=== PATIENT | male | born 1985 | race Two or more races ===

== ENCOUNTER 2019-06-30 20:03 | Inpatient (IN) | payer SELFPAY ==
[~2019-06-30 20:03] MED LIST: ETOMIDATE INJ/PF 20 MG/10 ML SDV IV ONE; ROCURONIUM BROMIDE INJ 50 MG/5 ML VIAL IV ONE
[2019-06-30] MEDS ORDERED: FENTANYL CITRATE INJ/PF 100 MCG/2 ML AMPUL ONE (20:17)
--- NOTE | 2019-06-30 20:20 | ER Document Report ---
ED General - General Stated Complaint: ETOH ABUSE Time Seen by Provider: 06/30/19 20:17 Mode of Arrival: Medic Information source: Emergency Med Personnel Cannot obtain history due to: Intoxicated, Unstable vital signs, Altered mental status Notes: 34-year-old male presents via EMS from home unresponsive, agonal breathing and actively being ventilated by BVM. EMS reports that they get a call from the home of the patient and bystanders report that the patient drank 1/5 of tequila within 3 minutes as well as several beers. Patient was found laying on his side with vomit all over him. EMS reports O2 saturation of 77%. - HPI Onset: Just prior to arrival - Related Data Allergies/Adverse Reactions: No Known Allergies Allergy (Unverified 06/30/19 21:03) Past Medical History - General Information source: Emergency Med Personnel Cannot obtain history due to: Intoxicated, Intubated, Unstable vital signs, Altered mental status - Social History Smoking Status: Unknown if Ever Smoked Frequency of alcohol use: Heavy Family History: Reviewed & Not Pertinent Review of Systems - Review of Systems -: Yes ROS unobtainable due to patient's medical condition Physical Exam - Vital signs Vitals: Resp BP Pulse Ox 23 H 114/83 92 06/30/19 20:10 06/30/19 20:10 06/30/19 20:10 - Notes Notes: PHYSICAL EXAMINATION: GENERAL: Agonal respirations, active bagging, covered in emesis. HEAD: Atraumatic, normocephalic. EYES: Pupils equal round and reactive to light, extraocular movements intact, sclera anicteric, conjunctiva are normal. ENT: Nares patent, oropharynx clear without exudates. Moist mucous membranes. NECK: Normal range of motion, supple without lymphadenopathy LUNGS: Coarse breath sounds bilaterally with bagging. Agonal breathing HEART: Regular rate and rhythm without murmurs ABDOMEN: Soft, nontender, nondistended abdomen. No guarding, no rebound. No masses appreciated. Musculoskeletal: No pitting edema, cyanosis, obvious deformity NEUROLOGICAL: GCS 3 T PSYCH: Somnolent SKIN: Warm, Dry, normal turgor, no rashes or lesions noted. Course - Re-evaluation Re-evalutation: 06/30/19 21:17 Laboratory 06/30/19 06/30/19 06/30/19 20:07 20:07 20:07 WBC 11.7 H RBC 4.64 Hgb 15.0 Hct 43.9 MCV 95 MCH 32.4 MCHC 34.2 RDW 12.4 Plt Count 383 Total Counted 100 Seg Neutrophils % Not Reportable Seg Neuts % (Manual) 36 L Lymphocytes % Not Reportable Lymphocytes % (Manual) 50 H Atypical Lymphs % 9 Monocytes % Not Reportable Monocytes % (Manual) 4 Eosinophils % Not Reportable Eosinophils % (Manual) 0 Basophils % Not Reportable Basophils % (Manual) 1 Absolute Neutrophils Not Reportable Abs Neuts (Manual) 4.2 Absolute Lymphocytes Not Reportable Abs Lymphs (Manual) 6.9 H Absolute Monocytes Not Reportable Abs Monocytes (Manual) 0.5 Absolute Eosinophils Not Reportable Absolute Eos (Manual) 0.0 Absolute Basophils Not Reportable Abs Basophils (Manual) 0.1 Platelet Comment ADEQUATE Hypochromasia 1+ Sodium 148.0 H Potassium 4.3 Chloride 114 H Carbon Dioxide 20 L Anion Gap 14 BUN 11 Creatinine 0.61 Est GFR ( Amer) > 60 Est GFR (Non-Af Amer) > 60 Glucose 128 H POC Glucose Lactic Acid Calcium 8.2 L Total Bilirubin 0.3 Direct Bilirubin 0.3 Neonat Total Bilirubin Not Reportable Neonat Direct Bilirubin Not Reportable Neonat Indirect Bili Not Reportable AST 32 ALT 22 Alkaline Phosphatase 77 Troponin I < 0.012 Total Protein 7.4 Albumin 4.3 Salicylates < 1.0 L Acetaminophen < 10 L Serum Alcohol 753 H* 06/30/19 06/30/19 20:07 20:37 WBC RBC Hgb Hct MCV MCH MCHC RDW Plt Count Total Counted Seg Neutrophils % Seg Neuts % (Manual) Lymphocytes % Lymphocytes % (Manual) Atypical Lymphs % Monocytes % Monocytes % (Manual) Eosinophils % Eosinophils % (Manual) Basophils % Basophils % (Manual) Absolute Neutrophils Abs Neuts (Manual) Absolute Lymphocytes Abs Lymphs (Manual) Absolute Monocytes Abs Monocytes (Manual) Absolute Eosinophils Absolute Eos (Manual) Absolute Basophils Abs Basophils (Manual) Platelet Comment Hypochromasia Sodium Potassium Chloride Carbon Dioxide Anion Gap BUN Creatinine Est GFR ( Amer) Est GFR (Non-Af Amer) Glucose POC Glucose 104 Lactic Acid 1.7 Calcium Total Bilirubin Direct Bilirubin Neonat Total Bilirubin Neonat Direct Bilirubin Neonat Indirect Bili AST ALT Alkaline Phosphatase Troponin I Total Protein Albumin Salicylates Acetaminophen Serum Alcohol Temp Pulse Resp BP Pulse Ox 16 122/84 100 07/01/19 01:50 07/01/19 01:50 07/01/19 01:50 Chest X-Ray 06/30/19 20:18 IMPRESSION: Clear lungs. Endotracheal tube tip is located 2 cm above the meryl. Enteric drainage tube tip is located within the gastric body. copyright 2010 [employer]- All Rights Reserved Head CT 06/30/19 20:18 IMPRESSION: No acute intracranial abnormality. TECHNICAL DOCUMENTATION: Quality ID # [id number]: Final reports with documentation of one or more dose reduction techniques (e.g., Automated exposure control, adjustment of the mA and/or kV according to patient size, use of iterative reconstruction technique) copyright 2010 [employer]- All Rights Reserved Temp Pulse Resp BP Pulse Ox 16 122/84 100 07/01/19 01:50 07/01/19 01:50 07/01/19 01:50 34-year-old male presents via EMS from home unresponsive, agonal breathing and actively being ventilated by BVM. EMS reports that they get a call from the home of the patient and bystanders report that the patient drank 1/5 of tequila within 3 minutes as well as several beers. Patient was found laying on his side with vomit all over him. EMS reports O2 saturation of 77%. Upon arrival to the emergency department patient has agonal respirations and vomitus in his airway. He was suctioned and preoxygenated prior to intubation which was obtained with a glide scope. Because of the patient's concern for aspiration he did receive IV antibiotics. Patient did have episodes of hypotension prompting levophed administration. CBC shows mild leukocytosis,, no anemia. CMP is without significant electrolyte abnormality, alcohol level is 753. poison control contacted. 06/30/19 21:18 bare hugger placed for hypothermia. 06/30/19 21:26 I did speak to poison control who recommends supportive care, CIWA protocol, electrolyte replacement as needed. Family is at the bedside. Patient has been intubated. Suspect aspiration. Patient currently on a Versed drip for sedation and receiving fentanyl for pain. I did speak to the hospitalist Dr. Ludwig who has agreed to admit the patient to the ICU. 07/01/19 02:11 - Vital Signs Vital signs: Temp Pulse Resp BP Pulse Ox 16 122/84 100 07/01/19 01:50 07/01/19 01:50 07/01/19 01:50 - Laboratory Result Diagrams: 06/30/19 20:07 06/30/19 20:07 Laboratory results interpreted by me: 06/30/19 06/30/19 06/30/19 20:07 20:07 20:07 WBC 11.7 H Seg Neuts % (Manual) 36 L Lymphocytes % (Manual) 50 H Abs Lymphs (Manual) 6.9 H ABG pH ABG pO2 ABG HCO3 ABG Total CO2 ABG O2 Saturation Sodium 148.0 H Chloride 114 H Carbon Dioxide 20 L Glucose 128 H Calcium 8.2 L Phosphorus 5.0 H Salicylates < 1.0 L Acetaminophen < 10 L Serum Alcohol 753 H* 06/30/19 21:24 WBC Seg Neuts % (Manual) Lymphocytes % (Manual) Abs Lymphs (Manual) ABG pH 7.32 L ABG pO2 173.4 H ABG HCO3 19.1 L ABG Total CO2 20.2 L ABG O2 Saturation 99.1 H Sodium Chloride Carbon Dioxide Glucose Calcium Phosphorus Salicylates Acetaminophen Serum Alcohol - Diagnostic Test Radiology reviewed: Image reviewed, Reports reviewed - EKG Interpretation by Me EKG shows normal: Sinus rhythm Rate: Tachycardia Rhythm: NSR When compared to previous EKG there are: Previous EKG unavailable Procedures - Intubation Orotracheal Time of Intubation: 20:19 Airway evaluation: Copious secretions Mallampati Classification: Class 2 Medications: Etomidate, Pancuronium Intubation method: Orotracheal Blade type: Tess Blade size: 3 Equipment used: Glidescope ETT size: 7.5 ETT secured at: Teeth ETT secured at (cm): 24 Breath Sounds after Intubation: Right greater than left End tidal CO2 confirmed: Yes Intubation Complications: Vomited, Apparent aspiration Critical Care Note - Critical Care Note Total time excluding time spent on procedures (mins): 40 - Minutes of critical care time spent in direct contact evaluating and reevaluating the patient, treating symptoms, reviewing labs and studies and speaking with family and consultants excluding any procedures Discharge - Discharge Clinical Impression: Alcohol abuse Alcohol intoxication Qualifiers: Complication of substance-induced condition: with unspecified complication Qualified Code(s): F10.929 - Alcohol use, unspecified with intoxication, unspecified Respiratory failure Qualifiers: Chronicity: acute Respiratory failure complication: unspecified whether with hypoxia or hypercapnia Qualified Code(s): J96.00 - Acute respiratory failure, unspecified whether with hypoxia or hypercapnia Condition: Critical Disposition: ADMITTED INPATIENT Admitting Provider: Venkat (Hospitalist) Unit Admitted: ICU
[2019-06-30 20:25] LABS: HEMATOCRIT 43.9 % (37.9-51.0); MEAN CORPUSCULAR HEMOGLOBIN 32.4 pg (27.0-33.4); MEAN CORPUSCULAR HGB CONC 34.2 g/dL (32.0-36.0); MEAN CORPUSCULAR VOLUME 95 fl (80-97); PLATELET COUNT 383 10^3/uL (150-450); RED BLOOD COUNT 4.64 10^6/uL (4.35-5.55); RED CELL DISTRIBUTION WIDTH 12.4 % (11.5-14.0); WHITE BLOOD COUNT 11.7 10^3/uL (4.0-10.5)
--- NOTE | 2019-06-30 20:44 | RADIOLOGY REPORT (SQ) ---
EXAM DESCRIPTION: XR CHEST 1 VIEW COMPLETED DATE/TME: 06/30/2019 20:18 CLINICAL HISTORY: 34 years, Male, intubated COMPARISON: None. NUMBER OF VIEWS: One TECHNIQUE: Single frontal view of the chest was obtained LIMITATIONS: None. FINDINGS: Endotracheal tube tip is located in the trachea, approximately 2 cm above the meryl. Enteric drainage tube tip is located within the gastric body. Cardiac and mediastinal contours are normal. Lungs are clear. No pleural effusion or pneumothorax. IMPRESSION: Clear lungs. Endotracheal tube tip is located 2 cm above the meryl. Enteric drainage tube tip is located within the gastric body. copyright 2010 [employer]- All Rights Reserved
[2019-06-30] MEDS ORDERED: IMIPENEM/CILASTATIN SODIUM INJ 500 MG VIAL IV ONE (20:47)
[2019-06-30 20:49] LABS: ALBUMIN 4.3 g/dL (3.5-5.0); ALKALINE PHOSPHATASE 77 U/L (38-126); ANION GAP 14 (5-19); ASPARTATE AMINO TRANSFERASE 32 U/L (17-59); BILIRUBIN,DIRECT 0.3 mg/dL (0.0-0.4); BILIRUBIN,TOTAL 0.3 mg/dL (0.2-1.3); BLOOD UREA NITROGEN 11 mg/dL (7-20); CALCIUM 8.2 mg/dL (8.4-10.2); CARBON DIOXIDE 20 mmol/L (22-30); CHLORIDE 114 mmol/L (98-107); GLUCOSE 128 mg/dL (75-110); POTASSIUM 4.3 mmol/L (3.6-5.0); TOTAL PROTEIN 7.4 g/dL (6.3-8.2)
[2019-06-30 20:50] LABS: ACETAMINOPHEN < 10 ug/mL (10-30); SALICYLATE < 1.0 mg/dL (2.0-20.0)
[2019-06-30] MEDS ORDERED: MIDAZOLAM HCL 50 MG/100 ML RTUINJ ONE (20:57)
[2019-06-30] MEDS ORDERED: ONDANSETRON HCL INJ/PF 4 MG/2 ML SDV ONE (20:57)
[2019-06-30] MEDS ORDERED: NALOXONE HCL INJ/PF 0.4 MG/1 ML SDV ONE (20:58)
[2019-06-30] MEDS ORDERED: NALOXONE HCL INJ 2 MG/2 ML DISP.SYRIN ONE (20:59)
[2019-06-30 21:07] LABS: ABSOLUTE LYMPHOCYTES# (MANUAL) 6.9 10^3/uL (0.5-4.7); ABSOLUTE MONOCYTES # (MANUAL) 0.5 10^3/uL (0.1-1.4); BASOPHILS % (MANUAL) 1 % (0-2); EOSINOPHILS % (MANUAL) 0 % (0-6); LYMPHOCYTES % (MANUAL) 50 % (13-45); MONOCYTES % (MANUAL) 4 % (3-13); SEGMENTED NEUTROPHILS % (MAN) 36 % (42-78); TOTAL CELLS COUNTED 100
[2019-06-30 21:08] LABS: ALCOHOL 753 mg/dL (NONE DETECTED); HYPOCHROMASIA 1+; PLATELET COMMENT ADEQUATE
[2019-06-30] MEDS ORDERED: NORMAL SALINE 1000 ML 1,000 ML IV ONE ×2 (21:22→22:18)
[2019-06-30] MEDS ORDERED: THIAMINE HCL 100 MG, FOLIC ACID 1 MG in NORMAL SALINE 250 ML IV ONE (21:25)
[2019-06-30 21:30] LABS: APPEARANCE,URINE CLEAR; BILIRUBIN,URINE NEGATIVE (NEGATIVE); COLOR,URINE STRAW; GLUCOSE, URINE NEGATIVE (NEGATIVE); KETONES,URINE NEGATIVE (NEGATIVE); LEUKOCYTE ESTERASE,URINE NEGATIVE (NEGATIVE); NITRITE,URINE NEGATIVE (NEGATIVE); PROTEIN,URINE NEGATIVE (NEGATIVE); URINE SPECIFIC GRAVITY 1.005; UROBILINOGEN,URINE NEGATIVE mg/dL (<2.0)
[2019-06-30 21:38] LABS: ARTERIAL BLOOD BASE EXCESS -6.5 mmol/L; ARTERIAL BLOOD H2CO3 1.15 mmol/L (1.05-1.35); ARTERIAL BLOOD HCO3 19.1 mmol/L (20-24); ARTERIAL BLOOD O2 SATURATION 99.1 % (94-98); ARTERIAL BLOOD PCO2 38.3 mmHg (35-45); ARTERIAL BLOOD PH 7.32 (7.35-7.45); ARTERIAL BLOOD PO2 173.4 mmHg (80-100); ARTERIAL BLOOD TOTAL CO2 20.2 mmol/L (23-27)
[2019-06-30 21:39] LABS: ARTERIAL BLOOD FIO2 75%
[2019-06-30 21:46] LABS: URINE AMPHETAMINES SCREEN NEGATIVE; URINE BARBITURATES SCREEN NEGATIVE; URINE BENZODIAZEPINES SCREEN NEGATIVE; URINE COCAINE SCREEN NEGATIVE; URINE MARIJUANA (THC) SCREEN NEGATIVE; URINE METHADONE SCREEN NEGATIVE; URINE PHENCYCLIDINE SCREEN NEGATIVE
[2019-06-30] MEDS: FENTANYL CITRATE INJ/PF 100 MCG/2 ML AMPUL IV SCH ×2 (21:54→22:41)
[2019-06-30] MEDS ORDERED: ROCURONIUM BROMIDE INJ 50 MG/5 ML VIAL IV ONE (21:56)
[2019-06-30] MEDS ORDERED: NALOXONE HCL INJ/PF 0.4 MG/1 ML SDV IV ONE (21:56)
[2019-06-30] MEDS ORDERED: NALOXONE HCL INJ 2 MG/2 ML DISP.SYRIN IV ONE (21:56)
[2019-06-30] MEDS ORDERED: FENTANYL CITRATE INJ/PF 100 MCG/2 ML AMPUL IV ONE (21:56)
[2019-06-30] MEDS ORDERED: ONDANSETRON HCL INJ/PF 4 MG/2 ML SDV IV ONE (21:57)
[2019-06-30] MEDS ORDERED: MIDAZOLAM HCL 50 MG/100 ML RTUINJ IV PRN (21:59)
[2019-06-30] MEDS ORDERED: ETOMIDATE INJ/PF 20 MG/10 ML SDV IV ONE (22:07)
[2019-06-30] MEDS ORDERED: NOREPINEPHRINE BITARTRATE INJ/PF 4 MG/4 ML SDV IV ONE (22:30)
[2019-06-30] MEDS ORDERED: DEXTROSE 5%-WATER 250 ML with NOREPINEPHRINE BITARTRATE 4 MG IV PRN ×2 (22:40)
[2019-06-30] MEDS ORDERED: THIAMINE HCL INJ 200 MG/2 ML VIAL ONE (22:54)
[2019-06-30] MEDS ORDERED: FOLIC ACID INJ 5 MG/1 ML 10 ML VIAL ONE (22:55)
[2019-06-30] MEDS ORDERED: IPRATROPIUM/ALBUTEROL 0.5-2.5 MG/3 ML AMPUL NEB ONE (23:45)
[2019-06-30] MEDS ORDERED: FAMOTIDINE INJ/PF 20 MG/2 ML SDV IV ONE (23:45)
[2019-07-01] MEDS: FENTANYL CITRATE INJ/PF 100 MCG/2 ML AMPUL IV SCH ×2 (00:07→04:07)
[2019-07-01] MEDS: NORMAL SALINE 1000 ML 1,000 ML IV PRN ×3 (00:18→16:35)
--- NOTE | 2019-07-01 00:25 | RADIOLOGY REPORT (SQ) ---
EXAM DESCRIPTION: CT HEAD WITHOUT IV CONTRAST COMPLETED DATE/TME: 06/30/2019 20:18 CLINICAL HISTORY: 34 years, Male, ams COMPARISON: None. TECHNIQUE: Noncontrast CT of the head was performed. Coronal and sagittal reformations were created. Images stored on PACS. All CT scanners at this facility use dose modulation, iterative reconstruction, and/or weight based dosing when appropriate to reduce radiation dose to as low as reasonably achievable (ALARA). [facility]: Dose Right [facility]: CareDose [facility]: Dose Right [facility]: Teradose 4D [facility]: [employer] LIMITATIONS: None. FINDINGS: Brain parenchyma is normal in attenuation. No acute intracranial hemorrhage, mass effect, or extra-axial fluid is seen. The ventricles and sulcal spaces are normal in size and configuration. Globes and orbits show no acute abnormality. However, there is remote deformity involving the left lamina papyracea. Mild mucosal thickening is noted about both maxillary antra. Remaining paranasal sinuses and mastoid air cells are clear. There are no depressed skull fractures. A mild amount of fluid and debris is noted about the nasopharynx. IMPRESSION: No acute intracranial abnormality. TECHNICAL DOCUMENTATION: Quality ID # 436: Final reports with documentation of one or more dose reduction techniques (e.g., Automated exposure control, adjustment of the mA and/or kV according to patient size, use of iterative reconstruction technique) copyright 2011 [employer] [place]- All Rights Reserved
--- NOTE | 2019-07-01 02:24 | PDOC H&P ---
History of Present Illness Admission Date/PCP: 06/30/19 23:38 Patient complains of: Heavy drinking followed by vomiting and unresponsiveness History of Present Illness: AALIYAH LION is a 34 year old male with history of EtOH abuse who presented to the emergency room after drinking about the fifth of tequila and half an hour. Patient is known to drink heavily over the weekend. He vomited and was later noted to be in agonal breathing by EMS covered with vomitus. No other history could be obtained and there were no family members available. Upon presentation to the emergency room vital signs were normal as mentioned below. Labs revealed leukocytosis of 11.7With 50% lymphocytes and 36% neutrophils with 50% with 50% of sites and 36% neutrophils. ABG showed pH 7.32, bicarbonate 19.1, PCO2 173.4 and PCO2 38.3. CMP was remarkable for hyponatremia 148 and hyperchloremia 114. CO2 is 20 glucose 128 with calcium 8.2, phosphorus 5, magnesium 2.2 lactic acid 1.7 His alcohol level remarkably elevated at 753, Tylenol and salicylate less than 10 and urine drug screen came back negative. Head CT scan revealed no acute intracranial abnormalities and EKG revealed sinus tachycardia with a rate of 113. The patient was given IV Narcan in the emergency room as well as hydration with IV normal saline and then banana bag. The patient will be admitted to an ICU bed for further evaluation and management Past Medical History Past Medical History: #1 ongoing tobacco abuse Social History Smoking Status: Unknown if Ever Smoked Family History Parental Family History Reviewed: Yes Children Family History Reviewed: Yes Sibling(s) Family History Reviewed.: Yes Medication/Allergy Home Medications: No Home Medications 06/30/19 Allergies/Adverse Reactions: No Known Allergies Allergy (Unverified 06/30/19 21:03) Review of Systems Review of Systems: As per history of present illness is unobtainable as the patient is sedated on mechanical ventilation Physical Exam Vital Signs: Temp Pulse Resp BP Pulse Ox 16 112/70 99 07/01/19 01:00 07/01/19 01:00 07/01/19 01:00 Intake & Output 06/29/19 06/30/19 07/01/19 06:59 06:59 06:59 Intake Total 2016 Output Total 1600 Balance 416 Weight 54.4 kg Exam: Generally: Acutely ill young male who is sedated and intubated on mechanical ventilation Vital signs-as listed Head - atraumatic, normocephalic. Pupils - equal, round and reactive to light and accommodation. No scleral icterus. Oropharynx - moist mucous membranes and tongue. Nose: NG tube in place. Neck - supple. No JVD. Carotid pulses 2+ bilaterally. No carotid bruits. No palpable thyromegaly or lymphadenopathy. Cardiovascular - regular rate and rhythm. Normal S1 and S2. No murmurs, gallops or rubs. Lungs - clear to auscultation bilaterally. Abdomen - soft and nontender. Positive bowel sounds. No palpable organomegaly or masses. Extremities - no pitting edema, clubbing or cyanosis. Neuro - grossly non-focal. Skin - no rashes. and rectal exam - deferred. Results Laboratory Results: 06/30/19 20:07 06/30/19 20:07 06/30/19 06/30/19 06/30/19 20:07 20:07 20:07 WBC 11.7 H RBC 4.64 Hgb 15.0 Hct 43.9 MCV 95 MCH 32.4 MCHC 34.2 RDW 12.4 Plt Count 383 Seg Neutrophils % Not Reportable Lymphocytes % Not Reportable Monocytes % Not Reportable Eosinophils % Not Reportable Basophils % Not Reportable Absolute Neutrophils Not Reportable Absolute Lymphocytes Not Reportable Absolute Monocytes Not Reportable Absolute Eosinophils Not Reportable Absolute Basophils Not Reportable Carbonic Acid HCO3/H2CO3 Ratio ABG pH ABG pCO2 ABG pO2 ABG HCO3 ABG O2 Saturation ABG Base Excess FiO2 Sodium 148.0 H Potassium 4.3 Chloride 114 H Carbon Dioxide 20 L Anion Gap 14 BUN 11 Creatinine 0.61 Est GFR ( Amer) > 60 Est GFR (Non-Af Amer) > 60 Glucose 128 H Lactic Acid 1.7 Calcium 8.2 L Phosphorus Magnesium Total Bilirubin 0.3 AST 32 Alkaline Phosphatase 77 Total Protein 7.4 Albumin 4.3 Urine Color Urine Appearance Urine pH Ur Specific [place] Urine Protein Urine Glucose (UA) Urine Ketones Urine Blood Urine Nitrite Ur Leukocyte Esterase Urine WBC (Auto) Urine RBC (Auto) 06/30/19 06/30/19 06/30/19 20:07 20:27 21:24 WBC RBC Hgb Hct MCV MCH MCHC RDW Plt Count Seg Neutrophils % Lymphocytes % Monocytes % Eosinophils % Basophils % Absolute Neutrophils Absolute Lymphocytes Absolute Monocytes Absolute Eosinophils Absolute Basophils Carbonic Acid 1.15 HCO3/H2CO3 Ratio 16:1 ABG pH 7.32 L ABG pCO2 38.3 ABG pO2 173.4 H ABG HCO3 19.1 L ABG O2 Saturation 99.1 H ABG Base Excess -6.5 FiO2 75% Sodium Potassium Chloride Carbon Dioxide Anion Gap BUN Creatinine Est GFR ( Amer) Est GFR (Non-Af Amer) Glucose Lactic Acid Calcium Phosphorus 5.0 H Magnesium 2.2 Total Bilirubin AST Alkaline Phosphatase Total Protein Albumin Urine Color STRAW Urine Appearance CLEAR Urine pH 5.0 Ur Specific [place] 1.005 Urine Protein NEGATIVE Urine Glucose (UA) NEGATIVE Urine Ketones NEGATIVE Urine Blood NEGATIVE Urine Nitrite NEGATIVE Ur Leukocyte Esterase NEGATIVE Urine WBC (Auto) 0 Urine RBC (Auto) 0 06/30/19 20:07 Troponin I < 0.012 Impressions: Chest X-Ray 06/30/19 20:18 IMPRESSION: Clear lungs. Endotracheal tube tip is located 2 cm above the meryl. Enteric drainage tube tip is located within the gastric body. copyright 2011 [employer]- All Rights Reserved Head CT 06/30/19 20:18 IMPRESSION: No acute intracranial abnormality. TECHNICAL DOCUMENTATION: Quality ID # 436: Final reports with documentation of one or more dose reduction techniques (e.g., Automated exposure control, adjustment of the mA and/or kV according to patient size, use of iterative reconstruction technique) copyright 2011 [employer]- All Rights Reserved Assessment and Plan - Diagnosis (1) Acute respiratory failure Is this a current diagnosis for this admission?: Yes Plan: The patient will be admitted to an ICU bed. Ventilator protocol will be followed. We will follow ABG and adjust ventilatory settings accordingly. (2) Vomiting Is this a current diagnosis for this admission?: Yes Plan: Patient will be placed on hydration with IV normal saline and given PRN antiemetics. This could have led to mild aspiration. (3) Aspiration into respiratory tract Is this a current diagnosis for this admission?: Yes Plan: This could be secondary to vomiting. We will monitor his portable chest x-ray daily. He is given IV ertapenem in the emergency room will be continued on IV Zosyn (4) Alcohol intoxication Qualifiers: Complication of substance-induced condition: with unspecified complication Qualified Code(s): F10.929 - Alcohol use, unspecified with intoxication, unspecified Is this a current diagnosis for this admission?: Yes Plan: The patient will be given a banana bag daily. He will be placed on as needed IV Ativan for alcohol withdrawal (5) DVT prophylaxis Is this a current diagnosis for this admission?: Yes Plan: Subtest Lovenox - Time Time Spent with patient: 35 or more minutes Total Critical Time (Minutes): 45 Anticipated discharge: Home Within: within 72 hours Disposition: Admission to ICU - Inpatient Certification Based on my medical assessment, after consideration of the patient's comorbid ities, presenting symptoms, or acuity I expect that the services needed warrant INPATIENT care.: Yes I certify that my determination is in accordance with my understanding of Medicare's requirements for reasonable and necessary INPATIENT services [42 CFR 412.3e].: Yes Medical Necessity: Need for Neurological Checks - Need for mechanical ventilation Post Hospital Care: D/C or Transfer Summary - Plan Summary Plan Summary: The patient agreed to proceed with the above-mentioned plan. The patient is presumably full code. This note was created by [employer] dictating software and may contain typo errors that may have not been proofread.
[2019-07-01] MEDS ORDERED: PIPERACILLIN/TAZOBACTAM 3.375 GM VIAL IV SCH (02:30)
[2019-07-01] MEDS ORDERED: PIPERACILLIN/TAZOBACTAM 3.375 GM VIAL IV PRN (02:58)
[2019-07-01] MEDS ORDERED: PIPERACILLIN SODIUM/TAZOBACTAM 3.375 GM in NORMAL SALINE 100 ML IV ONE (03:00)
[2019-07-01] MEDS ORDERED: PIPERACILLIN/TAZOBACTAM 3.375 GM VIAL IV ONE (03:30)
[2019-07-01] MEDS: ACETAMINOPHEN 325 MG TABLET NG PRN ×3 (04:00→21:29)
[2019-07-01 04:05] LABS: ABSOLUTE LYMPHOCYTES (AUTO) 2.9 10^3/uL (0.5-4.7); ABSOLUTE MONOCYTES (AUTO) 0.8 10^3/uL (0.1-1.4); ABSOLUTE NEUT (AUTO) 15.8 10^3/uL (1.7-8.2); BASOPHILS % (AUTO) 0.2 % (0-2); EOSINOPHILS % (AUTO) 0.1 % (0-6); HEMOGLOBIN 14.6 g/dL (13.5-17.0); LYMPHOCYTES % (AUTO) 15.1 % (13-45); MEAN CORPUSCULAR HEMOGLOBIN 32.2 pg (27.0-33.4); MEAN CORPUSCULAR VOLUME 95 fl (80-97); MONOCYTES % (AUTO) 3.9 % (3-13); PLATELET COUNT 329 10^3/uL (150-450); RED BLOOD COUNT 4.55 10^6/uL (4.35-5.55); RED CELL DISTRIBUTION WIDTH 12.4 % (11.5-14.0); SEGMENTED NEUTROPHILS % (AUTO) 80.7 % (42-78); TOTAL CELLS COUNTED % (AUTO) 100 %; WHITE BLOOD COUNT 19.6 10^3/uL (4.0-10.5)
[2019-07-01 04:15] LABS: ALBUMIN 3.5 g/dL (3.5-5.0); ALKALINE PHOSPHATASE 67 U/L (38-126); ANION GAP 13 (5-19); ASPARTATE AMINO TRANSFERASE 59 U/L (17-59); BILIRUBIN,DIRECT 0.3 mg/dL (0.0-0.4); BILIRUBIN,TOTAL 0.5 mg/dL (0.2-1.3); BLOOD UREA NITROGEN 10 mg/dL (7-20); CALCIUM 7.2 mg/dL (8.4-10.2); CARBON DIOXIDE 20 mmol/L (22-30); CHLORIDE 117 mmol/L (98-107); GLUCOSE 97 mg/dL (75-110); TOTAL PROTEIN 6.3 g/dL (6.3-8.2)
[2019-07-01] MEDS: MIDAZOLAM HCL 50 MG/100 ML RTUINJ IV PRN ×3 (04:23→21:29)
[2019-07-01 04:28] LABS: ARTERIAL BLOOD BASE EXCESS -7.4 mmol/L; ARTERIAL BLOOD H2CO3 0.96 mmol/L (1.05-1.35); ARTERIAL BLOOD O2 SATURATION 97.5 % (94-98); ARTERIAL BLOOD PCO2 31.8 mmHg (35-45); ARTERIAL BLOOD PH 7.35 (7.35-7.45); ARTERIAL BLOOD PO2 102.8 mmHg (80-100)
[2019-07-01 04:29] LABS: ARTERIAL BLOOD FIO2 30%
[2019-07-01] MEDS: DEXTROSE 5%-WATER 250 ML with NOREPINEPHRINE BITARTRATE 4 MG IV PRN ×4 (04:47→17:22)
[2019-07-01] MEDS ORDERED: NOREPINEPHRINE BITARTRATE INJ/PF 4 MG/4 ML SDV IV ONE (05:08)
[2019-07-01] MEDS: IPRATROPIUM/ALBUTEROL 0.5-2.5 MG/3 ML AMPUL NEB SCH ×4 (08:12→20:24)
--- NOTE | 2019-07-01 08:36 | RADIOLOGY REPORT (SQ) ---
EXAM DESCRIPTION: CHEST SINGLE VIEW COMPLETED DATE/TIME: 07/01/2019 6:30 am REASON FOR STUDY: aspiration COMPARISON: 06/30/2019 EXAM PARAMETERS: NUMBER OF VIEWS: One view TECHNIQUE: Single frontal radiograph of the chest. RADIATION DOSE: N/A LIMITATIONS: None. FINDINGS: TEMPORARY SUPPORT DEVICES:ETT in expected location. NG tube courses below the casey-diaphr agm in to the stomach. LUNGS AND PLEURA: Dense opacity at the left lung base. Right lung clear. No effusions. No masses. N o pneumothorax. MEDIASTINUM AND HILAR STRUCTURES: No masses. Contour normal. HEART AND VASCULAR STRUCTURES: Heart normal in size. normal vascularity. Aorta normal for age. BONES: No acute findings. OTHER: No other significant finding. IMPRESSION: Compatible with aspiration complex. Dense opacity at the left base. SUPPORT DEVICE(S) IN EXPECTED LOCATIONS. TECHNICAL DOCUMENTATION: JOB ID: [id number] [email or web address]- All Rights Reserved Reading location - IP/workstation name: [email or web address]
[2019-07-01] MEDS ORDERED: DEXMEDETOMIDINE IN 0.9 % NACL 400 MCG/100 ML RTUPB IV ONE (09:39)
[2019-07-01] MEDS: ENOXAPARIN SODIUM INJ 40 MG/0.4 ML DISP.SYRIN SUBCUT SCH (10:22)
[2019-07-01] MEDS: FAMOTIDINE INJ/PF 20 MG/2 ML SDV IV SCH ×2 (10:22→21:29)
[2019-07-01] MEDS: PIPERACILLIN SODIUM/TAZOBACTAM 3.375 GM in NORMAL SALINE 100 ML IV SCH ×2 (10:23→17:22)
--- NOTE | 2019-07-01 11:40 | EKG REPORT ---
SEVERITY:- BORDERLINE ECG - SINUS TACHYCARDIA BORDERLINE T ABNORMALITIES, DIFFUSE LEADS : Confirmed by: Diana Jovel 01-Jul-2019 11:39:39
[2019-07-01] MEDS: LORAZEPAM INJ 2 MG/1 ML VIAL IV PRN (12:05)
[2019-07-01] MEDS: MORPHINE SULFATE 10 MG/ML INJ IV PRN ×2 (12:25→16:35)
[2019-07-01] MEDS ORDERED: ACETAMINOPHEN 650 MG SUPP.RECT PR PRN (13:51)
[2019-07-01] MEDS ORDERED: RINGERS SOLUTION,LACTATED 1,000 ML IV ONE ×2 (14:00→14:30)
[2019-07-01] MEDS ORDERED: NORMAL SALINE 1000 ML 500 ML IV ONE (15:30)
--- NOTE | 2019-07-01 15:33 | PDOC PROGRESS REPORT ---
Subjective Progress Note for:: 07/01/19 - ICU Subjective:: Patient seen in ICU at morning rounds. Patient currently sedated and on the ventilator. I went to the waiting room and speak with family-his brother and discussed about his case. Mother tells me that yesterday morning he started to drink beer and was drinking all day. later in the evening he was home with his other family member when he decided to drink 216 ounce off tequila shots one after the another within less than a half an hour. Later he became very lethargic and unresponsive and EMS was called who intubated him and brought him to the ER. Mother does not attest to any other medical problems that he knows of-he does not think this was anything intentional attempt of suicide. Patient does have a family back in [place]. Reason For Visit: ACUTE RESPIRATORY FAILURE ON MECHANICAL Physical Exam Vital Signs: Temp Pulse Resp BP Pulse Ox 99.7 F 100 16 94/45 L 94 07/01/19 10:00 07/01/19 11:40 07/01/19 12:00 07/01/19 11:55 07/01/19 12:00 Intake & Output 06/30/19 07/01/19 07/02/19 06:59 06:59 06:59 Intake Total 2847.2 187 Output Total 2530 320 Balance 317.2 -133 Weight 114 lb 6.719 oz General appearance: PRESENT: no acute distress Head exam: PRESENT: atraumatic, normocephalic Eye exam: ABSENT: scleral icterus Mouth exam: PRESENT: moist, other - ETT noted Respiratory exam: PRESENT: decreased breath sounds - right side with rhonchi, symmetrical Cardiovascular exam: PRESENT: +S1, +S2, tachycardia GI/Abdominal exam: PRESENT: normal bowel sounds, soft Extremities exam: ABSENT: pedal edema, +1 edema Neurological exam: PRESENT: other - sedated and unresponsive Skin exam: PRESENT: dry, warm Results Laboratory Results: 07/01/19 03:23 07/01/19 03:23 06/30/19 06/30/19 06/30/19 20:07 20:07 20:07 WBC 11.7 H RBC 4.64 Hgb 15.0 Hct 43.9 MCV 95 MCH 32.4 MCHC 34.2 RDW 12.4 Plt Count 383 Seg Neutrophils % Not Reportable Lymphocytes % Not Reportable Monocytes % Not Reportable Eosinophils % Not Reportable Basophils % Not Reportable Absolute Neutrophils Not Reportable Absolute Lymphocytes Not Reportable Absolute Monocytes Not Reportable Absolute Eosinophils Not Reportable Absolute Basophils Not Reportable Carbonic Acid HCO3/H2CO3 Ratio ABG pH ABG pCO2 ABG pO2 ABG HCO3 ABG O2 Saturation ABG Base Excess FiO2 Sodium 148.0 H Potassium 4.3 Chloride 114 H Carbon Dioxide 20 L Anion Gap 14 BUN 11 Creatinine 0.61 Est GFR ( Amer) > 60 Est GFR (Non-Af Amer) > 60 Glucose 128 H Lactic Acid 1.7 Calcium 8.2 L Phosphorus Magnesium Total Bilirubin 0.3 AST 32 Alkaline Phosphatase 77 Total Protein 7.4 Albumin 4.3 Urine Color Urine Appearance Urine pH Ur Specific [place] Urine Protein Urine Glucose (UA) Urine Ketones Urine Blood Urine Nitrite Ur Leukocyte Esterase Urine WBC (Auto) Urine RBC (Auto) 06/30/19 06/30/19 06/30/19 20:07 20:27 21:24 WBC RBC Hgb Hct MCV MCH MCHC RDW Plt Count Seg Neutrophils % Lymphocytes % Monocytes % Eosinophils % Basophils % Absolute Neutrophils Absolute Lymphocytes Absolute Monocytes Absolute Eosinophils Absolute Basophils Carbonic Acid 1.15 HCO3/H2CO3 Ratio 16:1 ABG pH 7.32 L ABG pCO2 38.3 ABG pO2 173.4 H ABG HCO3 19.1 L ABG O2 Saturation 99.1 H ABG Base Excess -6.5 FiO2 75% Sodium Potassium Chloride Carbon Dioxide Anion Gap BUN Creatinine Est GFR ( Amer) Est GFR (Non-Af Amer) Glucose Lactic Acid Calcium Phosphorus 5.0 H Magnesium 2.2 Total Bilirubin AST Alkaline Phosphatase Total Protein Albumin Urine Color STRAW Urine Appearance CLEAR Urine pH 5.0 Ur Specific Dill[place] 1.005 Urine Protein NEGATIVE Urine Glucose (UA) NEGATIVE Urine Ketones NEGATIVE Urine Blood NEGATIVE Urine Nitrite NEGATIVE Ur Leukocyte Esterase NEGATIVE Urine WBC (Auto) 0 Urine RBC (Auto) 0 07/01/19 07/01/19 07/01/19 03:23 03:23 04:21 WBC 19.6 H RBC 4.55 Hgb 14.6 Hct 43.0 MCV 95 MCH 32.2 MCHC 34.0 RDW 12.4 Plt Count 329 Seg Neutrophils % 80.7 H Lymphocytes % 15.1 Monocytes % 3.9 Eosinophils % 0.1 Basophils % 0.2 Absolute Neutrophils 15.8 H Absolute Lymphocytes 2.9 Absolute Monocytes 0.8 Absolute Eosinophils 0.0 Absolute Basophils 0.0 Carbonic Acid 0.96 L HCO3/H2CO3 Ratio 17:1 ABG pH 7.35 ABG pCO2 31.8 L ABG pO2 102.8 H ABG HCO3 17.0 L ABG O2 Saturation 97.5 ABG Base Excess -7.4 FiO2 30% Sodium 149.6 H Potassium 4.0 Chloride 117 H Carbon Dioxide 20 L Anion Gap 13 BUN 10 Creatinine 0.64 Est GFR ( Amer) > 60 Est GFR (Non-Af Amer) > 60 Glucose 97 Lactic Acid Calcium 7.2 L Phosphorus Magnesium Total Bilirubin 0.5 AST 59 Alkaline Phosphatase 67 Total Protein 6.3 Albumin 3.5 Urine Color Urine Appearance Urine pH Ur Specific [place] Urine Protein Urine Glucose (UA) Urine Ketones Urine Blood Urine Nitrite Ur Leukocyte Esterase Urine WBC (Auto) Urine RBC (Auto) 06/30/19 20:07 Troponin I < 0.012 Impressions: Head CT 06/30/19 20:18 IMPRESSION: No acute intracranial abnormality. TECHNICAL DOCUMENTATION: Quality ID # [id number]: Final reports with documentation of one or more dose reduction techniques (e.g., Automated exposure control, adjustment of the mA and/or kV according to patient size, use of iterative reconstruction technique) copyright 2011 [employer]- All Rights Reserved Chest X-Ray 07/01/19 06:00 IMPRESSION: Compatible with aspiration complex. Dense opacity at the left base. SUPPORT DEVICE(S) IN EXPECTED LOCATIONS. Assessment and Plan - Diagnosis (1) Acute respiratory failure Is this a current diagnosis for this admission?: Yes (2) Alcohol intoxication Qualifiers: Complication of substance-induced condition: with unspecified complication Qualified Code(s): F10.929 - Alcohol use, unspecified with intoxication, unspecified Is this a current diagnosis for this admission?: Yes (3) Aspiration into respiratory tract Is this a current diagnosis for this admission?: Yes - Time Total Critical Time (Minutes): 33 - Inpatient Certification Based on my medical assessment, after consideration of the patient's comorbidities, presenting symptoms, or acuity I expect that the services needed warrant INPATIENT care.: Yes I certify that my determination is in accordance with my understanding of Medicare's requirements for reasonable and necessary INPATIENT services [42 CFR 412.3e].: Yes Medical Necessity: Failure to Improve With Outpatient Therapy, Need For IV Fluids, Need For Continuous Telemetry Monitoring, Need for IV Antibiotics, Risk of Complication if Not Cared For in Hospital - Plan Summary Plan Summary: 34-year-old male with no significant past medical history except for alcohol abuse who was intubated in the field by EMS for alcohol intoxication and brought to the ER Acute respiratory failure-most likely secondary to alcohol intoxication. On arrival his alcohol level was 753. Currently he remains intubated on the vent- ABG this morning shows pH of 7.35, P CO2 of 31, PO2 of 102 And oxygen saturation of 97%. On arrival his WBC was 11,000 but now elevated to 19,000. Concern for aspiration pneumonia and an alcoholic. Will repeat blood work in the morning. Currently he is sedated on Versed but he was becoming agitated so I started him on IV Precedex. See plan below. Continue with VAP protocols. Alcohol intoxication-Per brother he drank large amounts of beer through the day and then a large amount of tequila prior to becoming unresponsive. He does have a history of alcohol use although brother is not sure how much he drinks altogether. He started on IV banana bag daily. Aspiration-suspected aspiration pneumonia given the fact that he is alcoholic and he was found unresponsive at the house.WBC has trended up today to 05/2000- given the fact that he was unresponsive there is a high chance that he could have aspirated-he was started on IV Zosyn overnight and I will add IV vancomycin until cultures return. So far his blood cultures and tracheal aspirates are pending. GI/DVT proph- lovenox and pepcid Disposition-remain in the ICU on the ventilator until he improves.
[2019-07-01] MEDS ORDERED: VANCOMYCIN HCL 0 MG in DEXTROSE 5%-WATER 250 ML IV NR (15:45)
[2019-07-01] MEDS: DIAZEPAM INJ 10 MG/2 ML DISP.SYRIN IV PRN (15:53)
[2019-07-01] MEDS ORDERED: NORMAL SALINE 500 ML IV ONE (16:30)
[2019-07-01] MEDS: NORMAL SALINE 1000 ML 1,000 ML with POTASSIUM CHLORIDE 20 MEQ, MAGNESIUM SULFATE 8 MEQ,... IV SCH ×5 (17:18)
[2019-07-01] MEDS ORDERED: NORMAL SALINE 1000 ML 1,000 ML with POTASSIUM CHLORIDE 20 MEQ, MAGNESIUM SULFATE 8 MEQ,... IV SCH ×5 (18:00)
[2019-07-01] MEDS: VANCOMYCIN HCL 750 MG in DEXTROSE 5%-WATER 250 ML IV SCH (21:29)
[2019-07-01] MEDS: DEXMEDETOMIDINE IN NS 400 MCG/100 ML RTUPB IV PRN (21:32)
[2019-07-02] MEDS: PIPERACILLIN SODIUM/TAZOBACTAM 3.375 GM in NORMAL SALINE 100 ML IV SCH ×3 (02:44→18:05)
[2019-07-02] MEDS: MIDAZOLAM HCL 50 MG/100 ML RTUINJ IV PRN ×3 (03:51→21:27)
[2019-07-02 04:03] LABS: ABSOLUTE BASOPHILS # (AUTO) 0.1 10^3/uL (0.0-0.2); ABSOLUTE LYMPHOCYTES (AUTO) 1.1 10^3/uL (0.5-4.7); ABSOLUTE MONOCYTES (AUTO) 0.8 10^3/uL (0.1-1.4); ABSOLUTE NEUT (AUTO) 13.9 10^3/uL (1.7-8.2); BASOPHILS % (AUTO) 0.4 % (0-2); EOSINOPHILS % (AUTO) 0.2 % (0-6); HEMATOCRIT 35.6 % (37.9-51.0); MEAN CORPUSCULAR HEMOGLOBIN 32.6 pg (27.0-33.4); MEAN CORPUSCULAR HGB CONC 35.1 g/dL (32.0-36.0); MEAN CORPUSCULAR VOLUME 93 fl (80-97); MONOCYTES % (AUTO) 4.8 % (3-13); PLATELET COUNT 289 10^3/uL (150-450); RED BLOOD COUNT 3.84 10^6/uL (4.35-5.55); RED CELL DISTRIBUTION WIDTH 12.2 % (11.5-14.0); SEGMENTED NEUTROPHILS % (AUTO) 87.6 % (42-78); TOTAL CELLS COUNTED % (AUTO) 100 %; WHITE BLOOD COUNT 15.8 10^3/uL (4.0-10.5)
[2019-07-02 04:19] LABS: HEMOGLOBIN 12.5 g/dL (13.5-17.0)
[2019-07-02 04:21] LABS: ALBUMIN 2.9 g/dL (3.5-5.0); ALKALINE PHOSPHATASE 69 U/L (38-126); ANION GAP 9 (5-19); ASPARTATE AMINO TRANSFERASE 26 U/L (17-59); BILIRUBIN,DIRECT 0.5 mg/dL (0.0-0.4); BILIRUBIN,TOTAL 1.2 mg/dL (0.2-1.3); BLOOD UREA NITROGEN 6 mg/dL (7-20); CALCIUM 7.1 mg/dL (8.4-10.2); CARBON DIOXIDE 20 mmol/L (22-30); CHLORIDE 107 mmol/L (98-107); GLUCOSE 143 mg/dL (75-110); PHOSPHORUS 2.6 mg/dL (2.5-4.5); POTASSIUM 4.5 mmol/L (3.6-5.0); TOTAL PROTEIN 5.5 g/dL (6.3-8.2)
[2019-07-02 05:00] LABS: ARTERIAL BLOOD H2CO3 1.01 mmol/L (1.05-1.35); ARTERIAL BLOOD O2 SATURATION 95.4 % (94-98); ARTERIAL BLOOD PCO2 33.5 mmHg (35-45); ARTERIAL BLOOD PH 7.39 (7.35-7.45); ARTERIAL BLOOD PO2 76.3 mmHg (80-100)
[2019-07-02 05:07] LABS: ARTERIAL BLOOD FIO2 25%
[2019-07-02] MEDS: VANCOMYCIN HCL 750 MG in DEXTROSE 5%-WATER 250 ML IV SCH ×3 (05:18→21:27)
[2019-07-02] MEDS: DEXMEDETOMIDINE IN NS 400 MCG/100 ML RTUPB IV PRN ×3 (05:18→18:06)
[2019-07-02] MEDS: IPRATROPIUM/ALBUTEROL 0.5-2.5 MG/3 ML AMPUL NEB SCH ×4 (08:38→19:32)
--- NOTE | 2019-07-02 10:19 | RADIOLOGY REPORT (SQ) ---
EXAM DESCRIPTION: CHEST SINGLE VIEW COMPLETED DATE/TIME: 07/02/2019 6:22 am REASON FOR STUDY: resp failure COMPARISON: 07/01/2019 EXAM PARAMETERS: NUMBER OF VIEWS: One view. TECHNIQUE: Single frontal radiographic view of the chest acquired. RADIATION DOSE: NA LIMITATIONS: None. FINDINGS: LUNGS AND PLEURA: Increased opacification in the left base. Bowel opacification the media l right base. MEDIASTINUM AND HILAR STRUCTURES: No masses. Contour normal. HEART AND VASCULAR STRUCTURES: Heart normal in size. Normal vasculature. BONES: No acute findings. HARDWARE: Endotracheal tube has its tip 3 cm above the meryl. An NG tube extends to the stomach. OTHER: No other significant finding. IMPRESSION: Left lower lobe pneumonia. Cannot exclude limited right lower lobe pneumonia. TECHNICAL DOCUMENTATION: JOB ID: [id number] [employer]- All Rights Reserved Reading location - IP/workstation name: [email or web address]
[2019-07-02] MEDS: ENOXAPARIN SODIUM INJ 40 MG/0.4 ML DISP.SYRIN SUBCUT SCH (10:46)
[2019-07-02] MEDS: FAMOTIDINE INJ/PF 20 MG/2 ML SDV IV SCH ×2 (10:46→21:27)
[2019-07-02] MEDS ORDERED: OXYMETAZOLINE HCL 0.05% NASAL SPRAY 15 ML BOTTLE NASL PRN (11:40)
[2019-07-02] MEDS: LORAZEPAM INJ 2 MG/1 ML VIAL IV PRN (11:55)
[2019-07-02] MEDS: DIAZEPAM INJ 10 MG/2 ML DISP.SYRIN IV PRN (12:27)
--- NOTE | 2019-07-02 13:05 | CONSULTATION REPORT E ---
Consultation Report NAME: AALIYAH LION : 1985 AGE: 34Y DATE: 07/02/2019 611 A TO: JT GRADY MD FROM: HISTORY: The Otolaryngology Service was asked to evaluate this 34-year-old male who is currently in the Intensive Care Unit for an insect infestation involving his nose. The patient was admitted on June, with acute alcoholic intoxication resulting in unconsciousness. The patient was intubated in the field and brought to the emergency department and admitted to the Intensive Care Unit. Upon admission to the Intensive Care Unit, the staff noticed an insect infestation, specifically maggots in both nostrils. They did remove some. Otolaryngology was consulted to view the nasal cavity to ensure that there was not any necrotic tissue present. We did speak with the patient's brother and he did state that there was a fly infestation where the patient was living. PHYSICAL EXAMINATION: GENERAL: The patient is currently unresponsive and intubated. NOSE EXAM: Small insect larva are noted in both nasal vestibules. These are suctioned. No further larva are noted. Afrin was then sprayed into each nasal cavity and then a nasal endoscopy was performed. NASAL ENDOSCOPY: Middle meatus' are clear bilaterally. Inferior turbinates are normal. No evidence of necrotic tissue on either nasal cavity. NASOPHARYNX: Appears normal without evidence of necrotic tissue. Again, neither the nasal cavity or the nasopharynx revealed necrotic tissue. All tissue appeared healthy. ASSESSMENT: INSECT INFESTATION BILATERAL NASAL CAVITIES. PLAN: The diagnosis and treatment plan were discussed with the ICU nursing staff. It appears that this was most likely a superficial infestation secondary to the patient's living conditions. There was no evidence of necrotic tissue. If the larva reappear then just recommend suctioning. DICTATING PHYSICIAN: JT GRADY M.D. [id number] PHY#: [id number] ID: [id number] JOB#: [id number] ACCT: [id number] cc:JT GRADY MD >
[2019-07-02] MEDS: NORMAL SALINE 1000 ML 1,000 ML IV PRN (13:40)
[2019-07-02] MEDS: MORPHINE SULFATE 10 MG/ML INJ IV PRN (14:24)
[2019-07-02] MEDS ORDERED: HYDRALAZINE HCL INJ/PF 20 MG/1 ML SDV IV PRN (15:07)
--- NOTE | 2019-07-02 15:09 | PDOC PROGRESS REPORT ---
Subjective Progress Note for:: 07/02/19 - ICU Subjective:: Seen patient on rounds this morning and he remains sedated on the ventilator and sedation. He was becoming very agitated only on one sedation so a second 1 was added. Currently he remains on the Versed and Precedex. We will try to wean him daily. No overnight events noted by nursing except for there were maggots noted coming out of his nostrils this morning. Reason For Visit: ACUTE RESPIRATORY FAILURE ON MECHANICAL Physical Exam Vital Signs: Temp Pulse Resp BP Pulse Ox 99.7 F 85 18 142/97 H 97 07/02/19 12:00 07/02/19 14:00 07/02/19 14:14 07/02/19 14:14 07/02/19 14:14 Intake & Output 07/01/19 07/02/19 07/03/19 06:59 06:59 06:59 Intake Total 2947.2 5987 1091 Output Total 2530 2210 1920 Balance 417.2 3777 -829 Weight 114 lb 6.719 oz 125 lb 10.616 oz General appearance: PRESENT: no acute distress Head exam: PRESENT: atraumatic, normocephalic Eye exam: PRESENT: EOMI. ABSENT: scleral icterus Ear exam: PRESENT: normal external ear exam Mouth exam: PRESENT: moist Neck exam: ABSENT: tracheal deviation Respiratory exam: PRESENT: decreased breath sounds - Bilaterally and mostly at the bases with some rhonchi, rhonchi, symmetrical Cardiovascular exam: PRESENT: +S1, +S2, tachycardia GI/Abdominal exam: PRESENT: normal bowel sounds, soft Extremities exam: ABSENT: pedal edema Neurological exam: PRESENT: other - Sedated and unresponsive Skin exam: PRESENT: dry, warm Results Laboratory Results: 07/02/19 03:17 07/02/19 03:17 07/02/19 07/02/19 07/02/19 03:17 03:17 04:55 WBC 15.8 H RBC 3.84 L Hgb 12.5 L D Hct 35.6 L MCV 93 MCH 32.6 MCHC 35.1 RDW 12.2 Plt Count 289 Seg Neutrophils % 87.6 H Lymphocytes % 7.0 L Monocytes % 4.8 Eosinophils % 0.2 Basophils % 0.4 Absolute Neutrophils 13.9 H Absolute Lymphocytes 1.1 Absolute Monocytes 0.8 Absolute Eosinophils 0.0 Absolute Basophils 0.1 Carbonic Acid 1.01 L HCO3/H2CO3 Ratio 19:1 ABG pH 7.39 ABG pCO2 33.5 L ABG pO2 76.3 L ABG HCO3 20.0 ABG O2 Saturation 95.4 ABG Base Excess -4.0 FiO2 25% Sodium 135.5 L Potassium 4.5 Chloride 107 Carbon Dioxide 20 L Anion Gap 9 BUN 6 L Creatinine 0.58 Est GFR ( Amer) > 60 Est GFR (Non-Af Amer) > 60 Glucose 143 H Calcium 7.1 L Phosphorus 2.6 Magnesium 1.9 Total Bilirubin 1.2 AST 26 Alkaline Phosphatase 69 Total Protein 5.5 L Albumin 2.9 L 06/30/19 20:07 Troponin I < 0.012 Impressions: Head CT 06/30/19 20:18 IMPRESSION: No acute intracranial abnormality. TECHNICAL DOCUMENTATION: Quality ID # 436: Final reports with documentation of one or more dose reduction techniques (e.g., Automated exposure control, adjustment of the mA and/or kV according to patient size, use of iterative reconstruction technique) copyright 2011 [employer]- All Rights Reserved Chest X-Ray 07/02/19 06:00 IMPRESSION: Left lower lobe pneumonia. Cannot exclude limited right lower lobe pneumonia. Assessment and Plan - Diagnosis (1) Acute respiratory failure Is this a current diagnosis for this admission?: Yes (2) Alcohol intoxication Qualifiers: Complication of substance-induced condition: with unspecified complication Qualified Code(s): F10.929 - Alcohol use, unspecified with intoxication, unspecified Is this a current diagnosis for this admission?: Yes (3) Aspiration into respiratory tract Is this a current diagnosis for this admission?: Yes - Time Total Critical Time (Minutes): 34 - Inpatient Certification Based on my medical assessment, after consideration of the patient's comorbidities, presenting symptoms, or acuity I expect that the services needed warrant INPATIENT care.: Yes I certify that my determination is in accordance with my understanding of Medicare's requirements for reasonable and necessary INPATIENT services [42 CFR 412.3e].: Yes Medical Necessity: Failure to Improve With Outpatient Therapy, Need For IV Fluids, Need For Continuous Telemetry Monitoring, Need for IV Antibiotics, Risk of Complication if Not Cared For in Hospital - Plan Summary Plan Summary: 34-year-old male with no significant past medical history except for alcohol abuse who was intubated in the field by EMS for alcohol intoxication and brought to the ER Acute respiratory failure-most likely secondary to alcohol intoxication. On arr ival his alcohol level was 753. Currently he remains intubated on the vent-Dr. Chris is consulted for vent management. ABG this morning shows 7.39 pH, PCO2 of 33, bicarb of 20 and PO2 of 76 along with O2 saturation of 95%. Initially he was also hypotensive and started on Levophed but this has been weaned off. Continue with VAP protocols. Continue sedation vacation and weaning protocols daily. Alcohol intoxication-Per brother he drank large amounts of beer through the day and then a large amount of tequila prior to becoming unresponsive. He does have a history of alcohol use although brother is not sure how much he drinks altogether. He started on IV banana bag daily. Aspiration-suspected aspiration pneumonia given the fact that he is alcoholic and he was found unresponsive at the house. Currently on IV Zosyn day 3, and vancomycin, day 2-WBC is trending down and at 15,000 today. Continue with bronchial hygiene. Cultures so far are negative for tracheal aspirate and blood GI/DVT proph- lovenox and pepcid Disposition-remain in the ICU on the ventilator until he improves. GI/DVT prophylaxis-Lovenox and Pepcid I spoke with family twice today regarding his care and updated them.
[2019-07-02] MEDS: NORMAL SALINE 1000 ML 1,000 ML with POTASSIUM CHLORIDE 20 MEQ, MAGNESIUM SULFATE 8 MEQ,... IV SCH ×5 (17:59)
[2019-07-03] MEDS: MORPHINE SULFATE 10 MG/ML INJ IV PRN ×4 (00:23→19:54)
[2019-07-03] MEDS: DEXMEDETOMIDINE IN NS 400 MCG/100 ML RTUPB IV PRN ×4 (00:27→22:29)
[2019-07-03] MEDS: PIPERACILLIN SODIUM/TAZOBACTAM 3.375 GM in NORMAL SALINE 100 ML IV SCH ×3 (03:53→18:06)
[2019-07-03] MEDS: DIAZEPAM INJ 10 MG/2 ML DISP.SYRIN IV PRN ×2 (03:59→19:55)
[2019-07-03 04:05] LABS: ARTERIAL BLOOD BASE EXCESS 0.8 mmol/L; ARTERIAL BLOOD FIO2 25%; ARTERIAL BLOOD H2CO3 0.81 mmol/L (1.05-1.35); ARTERIAL BLOOD HCO3 22.2 mmol/L (20-24); ARTERIAL BLOOD O2 SATURATION 98.3 % (94-98); ARTERIAL BLOOD PCO2 26.8 mmHg (35-45); ARTERIAL BLOOD PH 7.54 (7.35-7.45); ARTERIAL BLOOD PO2 102.6 mmHg (80-100)
[2019-07-03 04:18] LABS: ABSOLUTE BASOPHILS # (AUTO) 0.1 10^3/uL (0.0-0.2); ABSOLUTE EOSINOPHILS # (AUTO) 0.2 10^3/uL (0.0-0.6); ABSOLUTE LYMPHOCYTES (AUTO) 1.3 10^3/uL (0.5-4.7); ABSOLUTE MONOCYTES (AUTO) 0.4 10^3/uL (0.1-1.4); ABSOLUTE NEUT (AUTO) 10.7 10^3/uL (1.7-8.2); BASOPHILS % (AUTO) 0.6 % (0-2); EOSINOPHILS % (AUTO) 1.7 % (0-6); HEMATOCRIT 35.9 % (37.9-51.0); HEMOGLOBIN 12.6 g/dL (13.5-17.0); LYMPHOCYTES % (AUTO) 10.1 % (13-45); MEAN CORPUSCULAR HEMOGLOBIN 32.1 pg (27.0-33.4); MEAN CORPUSCULAR HGB CONC 35.2 g/dL (32.0-36.0); MEAN CORPUSCULAR VOLUME 91 fl (80-97); MONOCYTES % (AUTO) 3.3 % (3-13); PLATELET COUNT 262 10^3/uL (150-450); RED BLOOD COUNT 3.93 10^6/uL (4.35-5.55); RED CELL DISTRIBUTION WIDTH 12.1 % (11.5-14.0); SEGMENTED NEUTROPHILS % (AUTO) 84.3 % (42-78); TOTAL CELLS COUNTED % (AUTO) 100 %; WHITE BLOOD COUNT 12.6 10^3/uL (4.0-10.5)
[2019-07-03 04:39] LABS: ALBUMIN 2.9 g/dL (3.5-5.0); ALKALINE PHOSPHATASE 85 U/L (38-126); ANION GAP 7 (5-19); ASPARTATE AMINO TRANSFERASE 22 U/L (17-59); BILIRUBIN,DIRECT 0.2 mg/dL (0.0-0.4); BLOOD UREA NITROGEN 4 mg/dL (7-20); CALCIUM 8.3 mg/dL (8.4-10.2); CARBON DIOXIDE 22 mmol/L (22-30); CHLORIDE 106 mmol/L (98-107); GLUCOSE 115 mg/dL (75-110); PHOSPHORUS 1.2 mg/dL (2.5-4.5); POTASSIUM 3.8 mmol/L (3.6-5.0); TOTAL PROTEIN 5.6 g/dL (6.3-8.2)
[2019-07-03 05:08] LABS: VANCOMYCIN,TROUGH 8.7 ug/mL (5.0-20.0)
[2019-07-03] MEDS: VANCOMYCIN HCL 750 MG in DEXTROSE 5%-WATER 250 ML IV SCH (05:36)
[2019-07-03] MEDS: MIDAZOLAM HCL 50 MG/100 ML RTUINJ IV PRN (05:38)
--- NOTE | 2019-07-03 08:17 | RADIOLOGY REPORT (SQ) ---
EXAM DESCRIPTION: CHEST SINGLE VIEW COMPLETED DATE/TIME: 07/03/2019 7:03 am REASON FOR STUDY: pna COMPARISON: 07/02/2019 NUMBER OF VIEWS: One view. TECHNIQUE: Single frontal radiographic image of the chest acquired. LIMITATIONS: None. FINDINGS: LUNGS AND PLEURA: Airspace disease is slightly increased in both perihilar regions. Basil ar airspace disease is grossly unchanged. MEDIASTINUM AND HILAR STRUCTURES: Stable heart size and mediastinal structures. HEART AND VASCULAR STRUCTURES: Stable appearance. SUPPORT DEVICES: Endotracheal tube remains in satisfactory position. Endotracheal tube has been pull ed back and lies in the mid esophagus. This should be advanced. BONES: No acute findings. OTHER: No other significant finding. IMPRESSION: 1. Slight increase in the perihilar airspace disease. 2. Endotracheal tube remains in satisfactory position. 3. NG tube has been withdrawn and lies in the mid esophagus. This needs to be advanced. COMMENT: This report was called to Kym at08:10 on 07/03/2019. TECHNICAL DOCUMENTATION: JOB ID: [id number] [employer]- All Rights Reserved Reading location - IP/workstation name: [email or web address]
[2019-07-03] MEDS: IPRATROPIUM/ALBUTEROL 0.5-2.5 MG/3 ML AMPUL NEB SCH ×4 (09:08→20:20)
--- NOTE | 2019-07-03 09:21 | RADIOLOGY REPORT (SQ) ---
EXAM DESCRIPTION: KUB/ABDOMEN (SINGLE VIEW) COMPLETED DATE/TIME: 07/03/2019 9:01 am REASON FOR STUDY: placement of NG COMPARISON: None. NUMBER OF VIEWS: One view. TECHNIQUE: Supine radiographic image of the abdomen acquired. LIMITATIONS: None. FINDINGS: BOWEL GAS PATTERN: Gas pattern is nonspecific. There is large amount of stool in the sple akua flexure and descending colon. NG tube is in place. Tip overlies the stomach. CALCIFICATIONS: No suspicious calcifications. SOFT TISSUES: No gross mass or suggestion of organomegaly. HARDWARE: None in the abdomen. BONES: No acute fracture. No worrisome bone lesions. OTHER: No other significant finding. IMPRESSION: NG tube is in place tip overlies the stomach. Gas pattern is nonspecific. TECHNICAL DOCUMENTATION: JOB ID: [id number] [employer]- All Rights Reserved Reading location - IP/workstation name: [email or web address]
[2019-07-03] MEDS: FAMOTIDINE INJ/PF 20 MG/2 ML SDV IV SCH ×2 (10:26→21:26)
[2019-07-03] MEDS: ENOXAPARIN SODIUM INJ 40 MG/0.4 ML DISP.SYRIN SUBCUT SCH (10:27)
[2019-07-03] MEDS ORDERED: BISACODYL 10 MG SUPP.RECT PR PRN (12:32)
--- NOTE | 2019-07-03 12:35 | PDOC PROGRESS REPORT ---
Subjective Progress Note for:: 07/03/19 Subjective:: Patient is intubated and sedated. Appears to be resting comfortably. Reason For Visit: ACUTE RESPIRATORY FAILURE ON MECHANICAL Physical Exam Vital Signs: Temp Pulse Resp BP Pulse Ox 99.0 F 58 L 12 135/94 H 99 07/03/19 12:00 07/03/19 12:19 07/03/19 12:19 07/03/19 12:00 07/03/19 12:19 Intake & Output 07/02/19 07/03/19 07/04/19 06:59 06:59 06:59 Intake Total 5987 3911 70 Output Total 3861 5295 50 Balance 3647 -9701 20 Weight 57 kg 55.3 kg General appearance: PRESENT: no acute distress, well-developed Head exam: PRESENT: atraumatic, normocephalic Ear exam: PRESENT: normal external ear exam Mouth exam: PRESENT: other - Endotracheal tube and orogastric tube in place Respiratory exam: PRESENT: clear to auscultation henry, symmetrical, unlabored. ABSENT: rales, rhonchi, tachypnea, wheezes Cardiovascular exam: PRESENT: RRR, +S1, +S2, systolic murmur - 2/6 Pulses: PRESENT: normal dorsalis pedis pul GI/Abdominal exam: PRESENT: diminished bowel sounds, soft. ABSENT: distended, tenderness Rectal exam: PRESENT: deferred Gentrourinary exam: PRESENT: indwelling catheter Extremities exam: ABSENT: pedal edema Musculoskeletal exam: PRESENT: normal inspection Neurological exam: ABSENT: awake Psychiatric exam: ABSENT: agitated Focused psych exam: ABSENT: restlessness Skin exam: PRESENT: dry, normal color, warm. ABSENT: rash Results Laboratory Results: 07/03/19 03:45 07/03/19 03:45 07/03/19 07/03/19 07/03/19 03:45 03:45 03:45 WBC 12.6 H RBC 3.93 L Hgb 12.6 L Hct 35.9 L MCV 91 MCH 32.1 MCHC 35.2 RDW 12.1 Plt Count 262 Seg Neutrophils % 84.3 H Lymphocytes % 10.1 L Monocytes % 3.3 Eosinophils % 1.7 Basophils % 0.6 Absolute Neutrophils 10.7 H Absolute Lymphocytes 1.3 Absolute Monocytes 0.4 Absolute Eosinophils 0.2 Absolute Basophils 0.1 Carbonic Acid 0.81 L HCO3/H2CO3 Ratio 27:1 ABG pH 7.54 H ABG pCO2 26.8 L ABG pO2 102.6 H ABG HCO3 22.2 ABG O2 Saturation 98.3 H ABG Base Excess 0.8 FiO2 25% Sodium 135.0 L Potassium 3.8 Chloride 106 Carbon Dioxide 22 Anion Gap 7 BUN 4 L Creatinine 0.54 Est GFR ( Amer) > 60 Est GFR (Non-Af Amer) > 60 Glucose 115 H Calcium 8.3 L Phosphorus 1.2 L Magnesium 2.3 Total Bilirubin 1.0 AST 22 Alkaline Phosphatase 85 Total Protein 5.6 L Albumin 2.9 L 06/30/19 20:07 Troponin I < 0.012 Impressions: Head CT 06/30/19 20:18 IMPRESSION: No acute intracranial abnormality. TECHNICAL DOCUMENTATION: Quality ID # 436: Final reports with documentation of one or more dose reduction techniques (e.g., Automated exposure control, adjustment of the mA and/or kV according to patient size, use of iterative reconstruction technique) copyright 2011 [employer]- All Rights Reserved Chest X-Ray 07/03/19 06:00 IMPRESSION: 1. Slight increase in the perihilar airspace disease. 2. Endotracheal tube remains in satisfactory position. 3. NG tube has been withdrawn and lies in the mid esophagus. This needs to be advanced. KUB X-Ray 07/03/19 08:26 IMPRESSION: NG tube is in place tip overlies the stomach. Gas pattern is nonspecific. Assessment and Plan - Diagnosis (1) Acute respiratory failure Is this a current diagnosis for this admission?: Yes Plan: 07/03/2019-the patient remains intubated. Current settings are SIMV with a rate of 12. Tidal volume is 500 with pressure support 10 and PEEP 5. FiO2 is 25%. His pH was 7.54 with a PCO2 that was low at 26.8. I am going to decrease the tidal volume to 450 and allow him to retain more PCO2 which will then bring the pH down. Repeat blood gases ordered for tomorrow. (2) Alcohol intoxication Qualifiers: Complication of substance-induced condition: with unspecified complication Qualified Code(s): F10.929 - Alcohol use, unspecified with intoxication, unspecified Is this a current diagnosis for this admission?: Yes Plan: Serum alcohol level on admission was 753. He has been getting fluids and has had a net positive fluid balance. Serum alcohol level should dissipate. We will need to monitor for withdrawal and delirium tremens. PRN medications available. We will continue the banana bag IV and monitor serum chemistries. (3) Aspiration into respiratory tract Qualifiers: Encounter type: subsequent encounter Qualified Code(s): T17.908D - Unspecified foreign body in respiratory tract, part unspecified causing other injury, subsequent encounter Is this a current diagnosis for this admission?: Yes Plan: 07/03/2019-patient exhibits airspace disease bilaterally. We will continue vancomycin and Zosyn at this time. Repeat chest x-ray in the morning. Continue weaning attempts. (4) Constipation Is this a current diagnosis for this admission?: Yes Plan: 07/03/2019-KUB film today revealed large fecal load. I have ordered a Dulcolax suppository as well as MiraLAX daily. If there is no bowel movement by tomorrow then we will likely administer a fleets enema. (5) Maggot infestation Is this a current diagnosis for this admission?: Yes Plan: 07/03/2019-appreciate Dr. Dsouza's input. Per his evaluation there is no necrotic tissue. The infestation was likely due to a large volume of house flie s that had access to the patient while he was unconscious. We will continue to monitor and suction any maggots observed in the nasal cavities. - Time Time Spent with patient: 15-24 minutes Medications reviewed and adjusted accordingly: Yes Anticipated discharge: Home
[2019-07-03] MEDS ORDERED: BISACODYL 10 MG SUPP.RECT PR ONE (13:30)
[2019-07-03] MEDS: POLYETHYLENE GLYCOL 3350 POWDER 17 GM/1 PACKET NG SCH (13:50)
[2019-07-03] MEDS: VANCOMYCIN HCL 1,250 MG in DEXTROSE 5%-WATER 250 ML IV SCH ×2 (13:50→21:26)
[2019-07-03] MEDS: NORMAL SALINE 1000 ML 1,000 ML IV PRN (14:00)
[2019-07-03] MEDS: NORMAL SALINE 1000 ML 1,000 ML with POTASSIUM CHLORIDE 20 MEQ, MAGNESIUM SULFATE 8 MEQ,... IV SCH ×5 (18:03)
[2019-07-04] MEDS: MIDAZOLAM HCL 50 MG/100 ML RTUINJ IV PRN ×5 (00:51→23:44)
[2019-07-04] MEDS: PIPERACILLIN SODIUM/TAZOBACTAM 3.375 GM in NORMAL SALINE 100 ML IV SCH ×3 (01:21→18:26)
[2019-07-04] MEDS: DIAZEPAM INJ 10 MG/2 ML DISP.SYRIN IV PRN ×4 (02:12→22:58)
[2019-07-04] MEDS: MORPHINE SULFATE 10 MG/ML INJ IV PRN ×5 (03:22→23:27)
[2019-07-04 05:51] LABS: ALKALINE PHOSPHATASE 107 U/L (38-126); ANION GAP 9 (5-19); ASPARTATE AMINO TRANSFERASE 37 U/L (17-59); BILIRUBIN,DIRECT 0.3 mg/dL (0.0-0.4); BILIRUBIN,TOTAL 1.2 mg/dL (0.2-1.3); BLOOD UREA NITROGEN 3 mg/dL (7-20); CALCIUM 8.3 mg/dL (8.4-10.2); CARBON DIOXIDE 22 mmol/L (22-30); CHLORIDE 106 mmol/L (98-107); GLUCOSE 91 mg/dL (75-110); POTASSIUM 3.7 mmol/L (3.6-5.0); TOTAL PROTEIN 5.9 g/dL (6.3-8.2)
[2019-07-04] MEDS: DEXMEDETOMIDINE IN NS 400 MCG/100 ML RTUPB IV PRN ×2 (05:51→20:20)
[2019-07-04] MEDS: VANCOMYCIN HCL 1,250 MG in DEXTROSE 5%-WATER 250 ML IV SCH ×3 (05:52→21:29)
[2019-07-04 05:53] LABS: ABSOLUTE BASOPHILS # (AUTO) 0.1 10^3/uL (0.0-0.2); ABSOLUTE EOSINOPHILS # (AUTO) 0.3 10^3/uL (0.0-0.6); ABSOLUTE LYMPHOCYTES (AUTO) 1.4 10^3/uL (0.5-4.7); ABSOLUTE MONOCYTES (AUTO) 0.5 10^3/uL (0.1-1.4); ABSOLUTE NEUT (AUTO) 9.3 10^3/uL (1.7-8.2); BASOPHILS % (AUTO) 0.5 % (0-2); EOSINOPHILS % (AUTO) 2.7 % (0-6); HEMATOCRIT 38.1 % (37.9-51.0); HEMOGLOBIN 13.2 g/dL (13.5-17.0); LYMPHOCYTES % (AUTO) 11.7 % (13-45); MEAN CORPUSCULAR HEMOGLOBIN 32.2 pg (27.0-33.4); MEAN CORPUSCULAR HGB CONC 34.6 g/dL (32.0-36.0); MEAN CORPUSCULAR VOLUME 93 fl (80-97); MONOCYTES % (AUTO) 4.6 % (3-13); PLATELET COUNT 292 10^3/uL (150-450); RED BLOOD COUNT 4.09 10^6/uL (4.35-5.55); SEGMENTED NEUTROPHILS % (AUTO) 80.5 % (42-78); TOTAL CELLS COUNTED % (AUTO) 100 %; WHITE BLOOD COUNT 11.5 10^3/uL (4.0-10.5)
[2019-07-04 06:17] LABS: PHOSPHORUS 2.4 mg/dL (2.5-4.5)
[2019-07-04 06:19] LABS: ARTERIAL BLOOD BASE EXCESS -3.5 mmol/L; ARTERIAL BLOOD FIO2 25%; ARTERIAL BLOOD H2CO3 0.93 mmol/L (1.05-1.35); ARTERIAL BLOOD HCO3 19.8 mmol/L (20-24); ARTERIAL BLOOD O2 SATURATION 98.1 % (94-98); ARTERIAL BLOOD PCO2 30.8 mmHg (35-45); ARTERIAL BLOOD PH 7.43 (7.35-7.45); ARTERIAL BLOOD PO2 107.6 mmHg (80-100); ARTERIAL BLOOD TOTAL CO2 20.8 mmol/L (23-27)
[2019-07-04] MEDS: IPRATROPIUM/ALBUTEROL 0.5-2.5 MG/3 ML AMPUL NEB SCH ×4 (08:04→20:04)
--- NOTE | 2019-07-04 08:19 | RADIOLOGY REPORT (SQ) ---
EXAM DESCRIPTION: CHEST SINGLE VIEW COMPLETED DATE/TIME: 07/04/2019 6:33 am REASON FOR STUDY: resp failure/aspiration COMPARISON: EXAM PARAMETERS: NUMBER OF VIEWS: One view. TECHNIQUE: Single frontal radiographic view of the chest acquired. RADIATION DOSE: NA LIMITATIONS: None. FINDINGS: LUNGS AND PLEURA: Persistent fluffy perihilar and basilar prominent interstitial opacities . Unchanged retrocardiac left basilar opacity. No large effusion. No pneumothorax. MEDIASTINUM AND HILAR STRUCTURES: No masses. Contour normal. HEART AND VASCULAR STRUCTURES: Stable. BONES: No acute findings. HARDWARE: Endotracheal tube tip overlies midthoracic trachea. Enteric tube tip below diaphragm but e xcluded by collimation. OTHER: No other significant finding. IMPRESSION: Persistent interstitial edema and retrocardiac opacity possibly edema, atelectasis or in fection. No large effusion. Enteric tube has been advanced and overlies the stomach. TECHNICAL DOCUMENTATION: JOB ID: [id number] [employer]- All Rights Reserved Reading location - IP/workstation name: [email or web address]
[2019-07-04] MEDS: NORMAL SALINE 1000 ML 1,000 ML IV PRN ×2 (08:50→18:41)
[2019-07-04] MEDS: ENOXAPARIN SODIUM INJ 40 MG/0.4 ML DISP.SYRIN SUBCUT SCH (10:12)
[2019-07-04] MEDS: POLYETHYLENE GLYCOL 3350 POWDER 17 GM/1 PACKET NG SCH (10:13)
[2019-07-04] MEDS: FAMOTIDINE INJ/PF 20 MG/2 ML SDV IV SCH ×2 (10:13→21:29)
--- NOTE | 2019-07-04 12:48 | PDOC PROGRESS REPORT ---
Subjective Progress Note for:: 07/04/19 Subjective:: Patient remains intubated and sedated. Still no report of a bowel movement. Reason For Visit: ACUTE RESPIRATORY FAILURE ON MECHANICAL Physical Exam Vital Signs: Temp Pulse Resp BP Pulse Ox 98.8 F 85 12 154/94 H 98 07/04/19 12:00 07/04/19 12:00 07/04/19 12:00 07/04/19 12:00 07/04/19 12:00 Intake & Output 07/03/19 07/04/19 07/05/19 06:59 06:59 06:59 Intake Total 3911 2782 450 Output Total 5295 2225 550 Balance -1384 557 -100 Weight 55.3 kg 56.8 kg General appearance: PRESENT: no acute distress, well-developed Head exam: PRESENT: atraumatic, normocephalic Ear exam: PRESENT: normal external ear exam. ABSENT: bleeding, drainage Mouth exam: PRESENT: other - Endotracheal tube and orogastric tube in place Respiratory exam: PRESENT: clear to auscultation henry, symmetrical, unlabored. ABSENT: rales, rhonchi, tachypnea, wheezes Cardiovascular exam: PRESENT: RRR, +S1, +S2. ABSENT: diastolic murmur, systolic murmur GI/Abdominal exam: PRESENT: diminished bowel sounds, soft. ABSENT: distended, tenderness Rectal exam: PRESENT: deferred Gentrourinary exam: PRESENT: indwelling catheter Extremities exam: ABSENT: joint swelling, pedal edema Musculoskeletal exam: PRESENT: normal inspection Neurological exam: ABSENT: awake Psychiatric exam: ABSENT: agitated Focused psych exam: ABSENT: restlessness Skin exam: PRESENT: dry, normal color, warm. ABSENT: rash Results Laboratory Results: 07/04/19 04:03 07/04/19 04:03 07/04/19 07/04/19 07/04/19 04:03 04:03 05:06 WBC 11.5 H RBC 4.09 L Hgb 13.2 L Hct 38.1 MCV 93 MCH 32.2 MCHC 34.6 RDW 12.0 Plt Count 292 Seg Neutrophils % 80.5 H Lymphocytes % 11.7 L Monocytes % 4.6 Eosinophils % 2.7 Basophils % 0.5 Absolute Neutrophils 9.3 H Absolute Lymphocytes 1.4 Absolute Monocytes 0.5 Absolute Eosinophils 0.3 Absolute Basophils 0.1 Carbonic Acid 0.93 L HCO3/H2CO3 Ratio 21:1 ABG pH 7.43 ABG pCO2 30.8 L ABG pO2 107.6 H ABG HCO3 19.8 L ABG O2 Saturation 98.1 H ABG Base Excess -3.5 FiO2 25% Sodium 136.7 L Potassium 3.7 Chloride 106 Carbon Dioxide 22 Anion Gap 9 BUN 3 L Creatinine 0.66 Est GFR ( Amer) > 60 Est GFR (Non-Af Amer) > 60 Glucose 91 Calcium 8.3 L Phosphorus 2.4 L Magnesium 2.1 Total Bilirubin 1.2 AST 37 Alkaline Phosphatase 107 Total Protein 5.9 L Albumin 3.0 L 07/02/19 10:55 Nasophary (Mrsa Only) MRSA Culture - Final NO MRSA RECOVERED 07/01/19 03:10 Tracheal Aspirate Gram Stain - Final 07/01/19 03:10 Tracheal Aspirate Sputum Culture - Final NORMAL CHERI 06/30/19 20:07 Troponin I < 0.012 Impressions: Head CT 06/30/19 20:18 IMPRESSION: No acute intracranial abnormality. TECHNICAL DOCUMENTATION: Quality ID # 436: Final reports with documentation of one or more dose reduction techniques (e.g., Automated exposure control, adjustment of the mA and/or kV according to patient size, use of iterative reconstruction technique) copyright 2011 [employer]- All Rights Reserved KUB X-Ray 07/03/19 08:26 IMPRESSION: NG tube is in place tip overlies the stomach. Gas pattern is nonspecific. Chest X-Ray 07/04/19 06:00 IMPRESSION: Persistent interstitial edema and retrocardiac opacity possibly edema, atelectasis or infection. No large effusion. Enteric tube has been advanced and overlies the stomach. Assessment and Plan - Diagnosis (1) Acute respiratory failure Qualifiers: Respiratory failure complication: hypoxia Qualified Code(s): J96.01 - Acute respiratory failure with hypoxia Is this a current diagnosis for this admission?: Yes Plan: 07/03/2019-the patient remains intubated. Current settings are SIMV with a rate of 12. Tidal volume is 500 with pressure support 10 and PEEP 5. FiO2 is 25%. His pH was 7.54 with a PCO2 that was low at 26.8. I am going to decrease the tidal volume to 450 and allow him to retain more PCO2 which will then bring the pH down. Repeat blood gases ordered for tomorrow. 07/04/2019-the patient remains intubated. Continue weaning trials. pH improved to 7.43 with reduction in tidal volume. Continue current respiratory treatments. We will try and aim for extubation tomorrow. (2) Alcohol intoxication Qualifiers: Complication of substance-induced condition: with unspecified complication Qualified Code(s): F10.929 - Alcohol use, unspecified with intoxication, unspecified Is this a current diagnosis for this admission?: Yes Plan: 07/03/2019-serum alcohol level on admission was 753. He has been getting fluids and has had a net positive fluid balance. Serum alcohol level should dissipate. We will need to monitor for withdrawal and delirium tremens. PRN medications available. We will continue the banana bag IV and monitor serum chemistries. 07/04/2019-the patient is still in the window for withdrawal. Prior to extubation we will make scheduled and as needed medications available as there will likely be significant withdrawal symptoms. (3) Aspiration into respiratory tract Qualifiers: Encounter type: subsequent encounter Qualified Code(s): T17.908D - Unspecified foreign body in respiratory tract, part unspecified causing other injury, subsequent encounter Is this a current diagnosis for this admission?: Yes Plan: 07/03/2019-patient exhibits airspace disease bilaterally. We will continue vancomycin and Zosyn at this time. Repeat chest x-ray in the morning. Continue weaning attempts. 07/04/2019-continue vancomycin and Zosyn. Did review the chest x-ray. The patient has been receiving IV fluids and he is net positive. As some of the infiltrates could be from fluid I have decreased the IV fluid to 50 mL's an hour and will administer a trial dose of 20 mg furosemide IV and monitor output. (4) Constipation Is this a current diagnosis for this admission?: Yes Plan: 07/03/2019-KUB film today revealed large fecal load. I have ordered a Dulcolax suppository as well as MiraLAX daily. If there is no bowel movement by tomorrow then we will likely administer a fleets enema. 07/04/2019-multiple medications have been administered. There is been no response thus far. We may need to institute soapsuds enemas. (5) Maggot infestation Is this a current diagnosis for this admission?: Yes Plan: 07/03/2019-appreciate Dr. Dsouza's input. Per his evaluation there is no necrotic tissue. The infestation was likely due to a large volume of house flies that had access to the patient while he was unconscious. We will continue to monitor and suction any maggots observed in the nasal cavities. 07/04/2019-continue to monitor for reappearance of maggots. - Time Time Spent with patient: 15-24 minutes Medications reviewed and adjusted accordingly: Yes
[2019-07-04] MEDS ORDERED: NA PHOS,M-B/NA PHOS,DI-BA (ADULT) 133 ML ENEMA PR ONE (13:00)
[2019-07-04] MEDS: NORMAL SALINE 1000 ML 1,000 ML with POTASSIUM CHLORIDE 20 MEQ, MAGNESIUM SULFATE 8 MEQ,... IV SCH ×5 (18:26)
[2019-07-04] MEDS: LORAZEPAM INJ 2 MG/1 ML VIAL IV PRN (19:32)
[2019-07-04] MEDS ORDERED: FUROSEMIDE INJ/PF 20 MG/2 ML SDV IV ONE (20:00)
[2019-07-05] MEDS: PIPERACILLIN SODIUM/TAZOBACTAM 3.375 GM in NORMAL SALINE 100 ML IV SCH ×2 (01:15→09:34)
[2019-07-05] MEDS: DEXMEDETOMIDINE IN NS 400 MCG/100 ML RTUPB IV PRN (04:05)
[2019-07-05 04:24] LABS: HEMATOCRIT 34.3 % (37.9-51.0); HEMOGLOBIN 12.1 g/dL (13.5-17.0); MEAN CORPUSCULAR HEMOGLOBIN 32.5 pg (27.0-33.4); MEAN CORPUSCULAR HGB CONC 35.2 g/dL (32.0-36.0); MEAN CORPUSCULAR VOLUME 92 fl (80-97); PLATELET COUNT 323 10^3/uL (150-450); RED BLOOD COUNT 3.72 10^6/uL (4.35-5.55); RED CELL DISTRIBUTION WIDTH 12.1 % (11.5-14.0); WHITE BLOOD COUNT 8.4 10^3/uL (4.0-10.5)
[2019-07-05 04:44] LABS: ANION GAP 11 (5-19); BLOOD UREA NITROGEN 4 mg/dL (7-20); CARBON DIOXIDE 21 mmol/L (22-30); CHLORIDE 105 mmol/L (98-107); GLUCOSE 77 mg/dL (75-110); POTASSIUM 3.2 mmol/L (3.6-5.0)
[2019-07-05] MEDS: MIDAZOLAM HCL 50 MG/100 ML RTUINJ IV PRN (04:45)
[2019-07-05] MEDS: LORAZEPAM INJ 2 MG/1 ML VIAL IV PRN (05:59)
[2019-07-05] MEDS: VANCOMYCIN HCL 1,250 MG in DEXTROSE 5%-WATER 250 ML IV SCH (06:01)
[2019-07-05 08:20] LABS: ARTERIAL BLOOD BASE EXCESS -4.1 mmol/L; ARTERIAL BLOOD HCO3 19.9 mmol/L (20-24); ARTERIAL BLOOD O2 SATURATION 93.6 % (94-98); ARTERIAL BLOOD PCO2 33.1 mmHg (35-45); ARTERIAL BLOOD PO2 67.2 mmHg (80-100); ARTERIAL BLOOD TOTAL CO2 20.9 mmol/L (23-27)
[2019-07-05 08:21] LABS: ARTERIAL BLOOD FIO2 ROOM AIR
[2019-07-05] MEDS: MORPHINE SULFATE 10 MG/ML INJ IV PRN ×2 (08:43→14:33)
--- NOTE | 2019-07-05 09:00 | PDOC PROGRESS REPORT ---
Subjective Progress Note for:: 07/04/19 Reason For Visit: ACUTE RESPIRATORY FAILURE ON MECHANICAL Physical Exam Vital Signs: Temp Pulse Resp BP Pulse Ox 97.9 F 70 12 154/109 H 96 07/05/19 06:00 07/05/19 07:00 07/05/19 07:00 07/05/19 06:09 07/05/19 07:00 Intake & Output 07/04/19 07/05/19 07/06/19 06:59 06:59 06:59 Intake Total 3805 2550 60 Output Total 2225 5250 Balance 1580 -2700 60 Weight 56.8 kg 55.6 kg Results Laboratory Results: 07/05/19 03:35 07/05/19 03:35 07/05/19 07/05/19 07/05/19 03:35 03:35 08:12 WBC 8.4 RBC 3.72 L Hgb 12.1 L Hct 34.3 L MCV 92 MCH 32.5 MCHC 35.2 RDW 12.1 Plt Count 323 Carbonic Acid 1.00 L HCO3/H2CO3 Ratio 19:1 ABG pH 7.40 ABG pCO2 33.1 L ABG pO2 67.2 L ABG HCO3 19.9 L ABG O2 Saturation 93.6 L ABG Base Excess -4.1 FiO2 ROOM AIR Sodium 136.8 L Potassium 3.2 L Chloride 105 Carbon Dioxide 21 L Anion Gap 11 BUN 4 L Creatinine 0.63 Est GFR ( Amer) > 60 Glucose 77 Calcium 8.0 L Magnesium 1.8 07/02/19 10:55 Nasophary (Mrsa Only) MRSA Culture - Final NO MRSA RECOVERED 06/30/19 20:07 Troponin I < 0.012 Impressions: Head CT 06/30/19 20:18 IMPRESSION: No acute intracranial abnormality. TECHNICAL DOCUMENTATION: Quality ID # 436: Final reports with documentation of one or more dose reduction techniques (e.g., Automated exposure control, adjustment of the mA and/or kV according to patient size, use of iterative reconstruction technique) copyright 2011 [employer]- All Rights Reserved
[2019-07-05] MEDS: IPRATROPIUM/ALBUTEROL 0.5-2.5 MG/3 ML AMPUL NEB SCH ×4 (09:01→20:24)
[2019-07-05] MEDS ORDERED: DEXAMETHASONE SOD PHOSPHATE INJ 4 MG/1 ML VIAL ONE (09:10)
--- NOTE | 2019-07-05 09:12 | RADIOLOGY REPORT (SQ) ---
EXAM DESCRIPTION: CHEST SINGLE VIEW COMPLETED DATE/TIME: 07/05/2019 9:02 am REASON FOR STUDY: PNA COMPARISON: 07/04/2019 EXAM PARAMETERS: NUMBER OF VIEWS: One view TECHNIQUE: Single frontal radiograph of the chest. RADIATION DOSE: N/A LIMITATIONS: None. FINDINGS: TEMPORARY SUPPORT DEVICES:ETT in expected location. NG tube courses below the casey-diaphr agm in to the stomach. LUNGS AND PLEURA: Perihilar opacities without improvement. No effusions. No masses. No pneumothorax. MEDIASTINUM AND HILAR STRUCTURES: No masses. Contour normal. HEART AND VASCULAR STRUCTURES: Heart normal in size. normal vascularity. Aorta normal for age. BONES: No acute findings. OTHER: No other significant finding. IMPRESSION: Stable radiographic appearance of the chest without improvement. SUPPORT DEVICE(S) IN EXPECTED LOCATIONS. TECHNICAL DOCUMENTATION: JOB ID: [id number] [employer]- All Rights Reserved Reading location - IP/workstation name: [email or web address]
--- NOTE | 2019-07-05 09:13 | RADIOLOGY REPORT (SQ) ---
EXAM DESCRIPTION: KUB/ABDOMEN (SINGLE VIEW) COMPLETED DATE/TIME: 07/05/2019 9:03 am REASON FOR STUDY: constipation, NO BM COMPARISON: None. NUMBER OF VIEWS: One view. TECHNIQUE: Supine radiographic image of the abdomen acquired. LIMITATIONS: None. FINDINGS: BOWEL GAS PATTERN: Normal bowel gas pattern. No dilated loops. CALCIFICATIONS: No suspicious calcifications. SOFT TISSUES: No gross mass or suggestion of organomegaly. HARDWARE: NG tube tip in the stomach. Rectal tube. BONES: No acute fracture. No worrisome bone lesions. OTHER: No other significant finding. IMPRESSION: NO RADIOGRAPHIC EVIDENCE FOR ACUTE ABDOMINAL DISEASE. TECHNICAL DOCUMENTATION: JOB ID: [id number] [employer]- All Rights Reserved Reading location - IP/workstation name: [email or web address]
[2019-07-05] MEDS: NORMAL SALINE 1000 ML 1,000 ML IV PRN (09:15)
[2019-07-05] MEDS: POTASSIUM CHLORIDE 20 MEQ/50 ML RTU IV SCH ×2 (09:31→12:04)
[2019-07-05] MEDS: ENOXAPARIN SODIUM INJ 40 MG/0.4 ML DISP.SYRIN SUBCUT SCH (09:33)
[2019-07-05] MEDS: POLYETHYLENE GLYCOL 3350 POWDER 17 GM/1 PACKET NG SCH (09:33)
[2019-07-05] MEDS: FAMOTIDINE INJ/PF 20 MG/2 ML SDV IV SCH ×2 (09:34→21:15)
[2019-07-05] MEDS ORDERED: BISACODYL 5 MG TABEC PO PRN (10:38)
--- NOTE | 2019-07-05 10:52 | PDOC PROGRESS REPORT ---
Subjective Progress Note for:: 07/05/19 Subjective:: Family is at the bedside. The patient was just extubated. He is on face tent. He seems comfortable but is still under the effects of sedation. Reason For Visit: ACUTE RESPIRATORY FAILURE ON MECHANICAL Physical Exam Vital Signs: Temp Pulse Resp BP Pulse Ox 98.8 F 111 H 17 117/67 93 07/05/19 08:00 07/05/19 10:00 07/05/19 10:09 07/05/19 10:09 07/05/19 10:09 Intake & Output 07/04/19 07/05/19 07/06/19 06:59 06:59 06:59 Intake Total 3805 2650 164 Output Total 2225 5250 450 Balance 1580 -2600 -286 Weight 56.8 kg 55.6 kg General appearance: PRESENT: no acute distress, well-developed Head exam: PRESENT: atraumatic, normocephalic Ear exam: PRESENT: normal external ear exam. ABSENT: bleeding, drainage Respiratory exam: PRESENT: clear to auscultation henry, symmetrical, unlabored. ABSENT: prolonged expiratory phas, rales, rhonchi, tachypnea, wheezes Cardiovascular exam: PRESENT: RRR, +S1, +S2, systolic murmur - 2/6 Pulses: PRESENT: normal radial pulses, normal dorsalis pedis pul GI/Abdominal exam: PRESENT: diminished bowel sounds, soft - Tympanitic. ABSENT: tenderness Rectal exam: PRESENT: deferred Gentrourinary exam: PRESENT: indwelling catheter Extremities exam: ABSENT: joint swelling, pedal edema, tenderness Musculoskeletal exam: PRESENT: normal inspection Neurological exam: ABSENT: awake Psychiatric exam: ABSENT: agitated Focused psych exam: ABSENT: restlessness Skin exam: PRESENT: dry, normal color, warm. ABSENT: rash Results Laboratory Results: 07/05/19 03:35 07/05/19 03:35 07/05/19 07/05/19 07/05/19 03:35 03:35 08:12 WBC 8.4 RBC 3.72 L Hgb 12.1 L Hct 34.3 L MCV 92 MCH 32.5 MCHC 35.2 RDW 12.1 Plt Count 323 Carbonic Acid 1.00 L HCO3/H2CO3 Ratio 19:1 ABG pH 7.40 ABG pCO2 33.1 L ABG pO2 67.2 L ABG HCO3 19.9 L ABG O2 Saturation 93.6 L ABG Base Excess -4.1 FiO2 ROOM AIR Sodium 136.8 L Potassium 3.2 L Chloride 105 Carbon Dioxide 21 L Anion Gap 11 BUN 4 L Creatinine 0.63 Est GFR ( Amer) > 60 Glucose 77 Calcium 8.0 L Magnesium 1.8 07/02/19 10:55 Nasophary (Mrsa Only) MRSA Culture - Final NO MRSA RECOVERED 06/30/19 20:07 Troponin I < 0.012 Impressions: Head CT 06/30/19 20:18 IMPRESSION: No acute intracranial abnormality. TECHNICAL DOCUMENTATION: Quality ID # 436: Final reports with documentation of one or more dose reduction techniques (e.g., Automated exposure control, adjustment of the mA and/or kV according to patient size, use of iterative reconstruction technique) copyright 2011 [employer]- All Rights Reserved Chest X-Ray 07/05/19 08:20 IMPRESSION: Stable radiographic appearance of the chest without improvement. SUPPORT DEVICE(S) IN EXPECTED LOCATIONS. KUB X-Ray 07/05/19 08:20 IMPRESSION: NO RADIOGRAPHIC EVIDENCE FOR ACUTE ABDOMINAL DISEASE. Assessment and Plan - Diagnosis (1) Acute respiratory failure Qualifiers: Respiratory failure complication: hypoxia Qualified Code(s): J96.01 - Acute respiratory failure with hypoxia Is this a current diagnosis for this admission?: Yes Plan: 07/03/2019-the patient remains intubated. Current settings are SIMV with a rate of 12. Tidal volume is 500 with pressure support 10 and PEEP 5. FiO2 is 25%. His pH was 7.54 with a PCO2 that was low at 26.8. I am going to decrease the tidal volume to 450 and allow him to retain more PCO2 which will then bring the pH down. Repeat blood gases ordered for tomorrow. 07/04/2019-the patient remains intubated. Continue weaning trials. pH improved to 7.43 with reduction in tidal volume. Continue current respiratory treatments. We will try and aim for extubation tomorrow. 07/05/2019-the patient has been extubated this morning. He is currently on a face tent. He appears quite comfortable. He still is somnolent from medication. Will continue oxygen supplementation with an intent of weaning to room air as soon as possible. (2) Alcohol intoxication Qualifiers: Complication of substance-induced condition: with unspecified complication Qualified Code(s): F10.929 - Alcohol use, unspecified with intoxication, unspecified Is this a current diagnosis for this admission?: Yes Plan: 07/03/2019-serum alcohol level on admission was 753. He has been getting fluids and has had a net positive fluid balance. Serum alcohol level should dissipate. We will need to monitor for withdrawal and delirium tremens. PRN medications available. We will continue the banana bag IV and monitor serum chemistries. 07/04/2019-the patient is still in the window for withdrawal. Prior to extubation we will make scheduled and as needed medications available as there will likely be significant withdrawal symptoms. 07/05/2019-once the current sedation wears off we will need to assess the potential for withdrawal. As needed medications will be available. I do not believe he will need scheduled medications at this time but this will be based on daily assessments. (3) Aspiration into respiratory tract Qualifiers: Encounter type: subsequent encounter Qualified Code(s): T17.908D - Unspecified foreign body in respiratory tract, part unspecified causing other injury, subsequent encounter Is this a current diagnosis for this admission?: Yes Plan: 07/03/2019-patient exhibits airspace disease bilaterally. We will continue vancomycin and Zosyn at this time. Repeat chest x-ray in the morning. Continue weaning attempts. 07/04/2019-continue vancomycin and Zosyn. Did review the chest x-ray. The patient has been receiving IV fluids and he is net positive. As some of the infiltrates could be from fluid I have decreased the IV fluid to 50 mL's an hour and will administer a trial dose of 20 mg furosemide IV and monitor output. 07/05/2019-we will complete the current antibiotic regimen as ordered. (4) Constipation Is this a current diagnosis for this admission?: Yes Plan: 07/03/2019-KUB film today revealed large fecal load. I have ordered a Dulcolax suppository as well as MiraLAX daily. If there is no bowel movement by tomorrow then we will likely administer a fleets enema. 07/04/2019-multiple medications have been administered. There is been no response thus far. We may need to institute soapsuds enemas. 07/05/2019-the patient has received an aggressive regimen of stool softeners and laxatives. It is my hope that once he begins to eat and drink this will also stimulate his bowels. Physical therapy will be seeing the patient and increased activity should also help. (5) Maggot infestation Is this a current diagnosis for this admission?: Yes Plan: 07/03/2019-appreciate Dr. Dsouza's input. Per his evaluation there is no necrotic tissue. The infestation was likely due to a large volume of house flies that had access to the patient while he was unconscious. We will continue to monitor and suction any maggots observed in the nasal cavities. 07/04/2019-continue to monitor for reappearance of maggots. 07/05/2019-no recurrence of maggots have been reported. (6) Hypokalemia Is this a current diagnosis for this admission?: Yes Plan: 07/05/2019-serum potassium was low today. The patient received potassium chloride supplement. Repeat potassium is normal. We will recheck electrolytes tomorrow. - Time Time Spent with patient: 25-34 minutes Medications reviewed and adjusted accordingly: Yes Anticipated discharge: Home - Plan Summary Plan Summary: The patient's brother was at the bedside during this encounter. We discussed the issues noted above. I explained that his recovery is still not complete. He will feel weak for a while. The hope is that when he metabolizes the benzodiazepine therapy he will not exhibit active signs of withdrawal.
[2019-07-05] MEDS ORDERED: PHENOL/SODIUM PHENOLATE 100 SPRAY/177 ML BOTTLE PO PRN (11:01)
--- NOTE | 2019-07-05 13:02 | PDOC PROGRESS REPORT ---
Subjective Progress Note for:: 07/05/19 Subjective:: Intubated sedated but arousable Reason For Visit: ACUTE RESPIRATORY FAILURE ON MECHANICAL Physical Exam Vital Signs: Temp Pulse Resp BP Pulse Ox 98.8 F 92 16 132/95 H 93 07/05/19 08:00 07/05/19 08:00 07/05/19 08:00 07/05/19 08:00 07/05/19 08:00 Intake & Output 07/04/19 07/05/19 07/06/19 06:59 06:59 06:59 Intake Total 3805 2550 60 Output Total 2225 5250 225 Balance 1580 -2700 -165 Weight 56.8 kg 55.6 kg General appearance: PRESENT: no acute distress, disheveled, well-developed, well-nourished Head exam: PRESENT: atraumatic, normocephalic Eye exam: PRESENT: conjunctiva pale. ABSENT: nystagmus, periorbital swelling, scleral icterus Mouth exam: PRESENT: dry mucosa, neck supple, tongue midline, other - ET tube Neck exam: ABSENT: carotid bruit, full ROM, JVD, lymphadenopathy, meningismus, tenderness, thyromegaly, tracheal deviation, tracheostomy, other Respiratory exam: PRESENT: decreased breath sounds, prolonged expiratory phas, rhonchi, symmetrical, unlabored. ABSENT: retraction, stridor, tachypnea Cardiovascular exam: PRESENT: RRR, +S1, +S2 Pulses: PRESENT: normal radial pulses GI/Abdominal exam: PRESENT: hypoactive bowel sounds, soft. ABSENT: mass Gentrourinary exam: PRESENT: indwelling catheter Extremities exam: ABSENT: calf tenderness, clubbing, joint swelling, pedal edema Musculoskeletal exam: ABSENT: ambulatory, deformity, dislocation, tenderness Neurological exam: PRESENT: altered, awake Psychiatric exam: PRESENT: anxious Focused psych exam: PRESENT: restlessness Skin exam: PRESENT: dry, warm Results Laboratory Results: 07/05/19 03:35 07/05/19 03:35 07/05/19 07/05/19 07/05/19 03:35 03:35 08:12 WBC 8.4 RBC 3.72 L Hgb 12.1 L Hct 34.3 L MCV 92 MCH 32.5 MCHC 35.2 RDW 12.1 Plt Count 323 Carbonic Acid 1.00 L HCO3/H2CO3 Ratio 19:1 ABG pH 7.40 ABG pCO2 33.1 L ABG pO2 67.2 L ABG HCO3 19.9 L ABG O2 Saturation 93.6 L ABG Base Excess -4.1 FiO2 ROOM AIR Sodium 136.8 L Potassium 3.2 L Chloride 105 Carbon Dioxide 21 L Anion Gap 11 BUN 4 L Creatinine 0.63 Est GFR ( Amer) > 60 Glucose 77 Calcium 8.0 L Magnesium 1.8 07/02/19 10:55 Nasophary (Mrsa Only) MRSA Culture - Final NO MRSA RECOVERED 06/30/19 20:07 Troponin I < 0.012 Impressions: Head CT 06/30/19 20:18 IMPRESSION: No acute intracranial abnormality. TECHNICAL DOCUMENTATION: Quality ID # 436: Final reports with documentation of one or more dose reduction techniques (e.g., Automated exposure control, adjustment of the mA and/or kV according to patient size, use of iterative reconstruction technique) copyright 2011 [employer]- All Rights Reserved Assessment & Plan - Diagnosis (1) Acute respiratory failure Qualifiers: Respiratory failure complication: hypoxia Qualified Code(s): J96.01 - Acute respiratory failure with hypoxia Is this a current diagnosis for this admission?: Yes Plan: Aspiratory rate, FiO2, airway pressures, minute ventilation suggest successful extubation will proceed with extubation (2) Alcohol intoxication Qualifiers: Complication of substance-induced condition: with unspecified complication Qualified Code(s): F10.929 - Alcohol use, unspecified with intoxication, unspecified Is this a current diagnosis for this admission?: Yes Plan: No evidence at this time of delirium tremors or alcohol withdrawal (3) Aspiration into respiratory tract Qualifiers: Encounter type: subsequent encounter Qualified Code(s): T17.908D - Unspecified foreign body in respiratory tract, part unspecified causing other injury, subsequent encounter Is this a current diagnosis for this admission?: Yes Plan: FiO2 21% - Time Total Critical Time (Minutes): 55
--- NOTE | 2019-07-05 13:06 | PDOC CONSULTATION ---
Consultation Consult Date: 07/01/19 Attending physician:: TIBURCIO OLSON Provider Consulted: AURE PÉREZ Consult reason:: Respiratory failure acute/aspiration pneumonitis History of Present Illness Admission Date/PCP: 06/30/19 23:38 History of Present Illness: AALIYAH LION is a 34 year old male in large quantities of alcohol was found down at home in emesis that appeared it was dry he was intubated and subsequently brought to the ICU initial work-up did displayed he had a alcohol level of 753. Rest of his drug screen appeared to be normal Past Medical History Cardiac Medical History: Reports: Hypertension Social History Smoking Status: Never Smoker Frequency of Alcohol Use: Heavy Hx Recreational Drug Use: No Hx Prescription Drug Abuse: No Have you had any respiratory illnesses as a child?: No Have you been exposed to any sick contacts recently?: No Have you travelled outside of [place] in the past 12 months?: Yes Family History Parental Family History Reviewed: No Children Family History Reviewed: No Sibling(s) Family History Reviewed.: No Medication/Allergy Home Medications: No Home Medications 06/30/19 Allergies/Adverse Reactions: No Known Allergies Allergy (Unverified 06/30/19 21:03) Review of Systems ROS unobtainable: Due to endotracheal tube, Due to mental status Physical Exam Vital Signs: Temp Pulse Resp BP Pulse Ox 99.7 F 100 16 94/45 L 94 07/01/19 10:00 07/01/19 11:40 07/01/19 12:00 07/01/19 11:55 07/01/19 12:00 Intake & Output 06/30/19 07/01/19 07/02/19 06:59 06:59 06:59 Intake Total 2847.2 187 Output Total 2530 320 Balance 317.2 -133 Weight 51.9 kg General appearance: PRESENT: no acute distress, disheveled, well-developed, well-nourished. ABSENT: cooperative Head exam: PRESENT: atraumatic, normocephalic Eye exam: PRESENT: conjunctiva pale. ABSENT: nystagmus, periorbital swelling, scleral icterus Mouth exam: PRESENT: dry mucosa, neck supple, tongue midline, other - ET tube Neck exam: ABSENT: carotid bruit, full ROM, JVD, lymphadenopathy, meningismus, tenderness, thyromegaly, tracheal deviation, tracheostomy, other Respiratory exam: PRESENT: decreased breath sounds, prolonged expiratory phas, rales, rhonchi, symmetrical, unlabored. ABSENT: retraction, stridor, tachypnea Cardiovascular exam: PRESENT: RRR, +S1, +S2, tachycardia Pulses: PRESENT: normal radial pulses GI/Abdominal exam: PRESENT: soft. ABSENT: mass Gentrourinary exam: PRESENT: indwelling catheter Extremities exam: ABSENT: calf tenderness, clubbing, joint swelling, pedal edema Musculoskeletal exam: ABSENT: ambulatory, deformity, dislocation Neurological exam: ABSENT: awake Skin exam: PRESENT: dry, warm Results Laboratory Results: 07/01/19 03:23 07/01/19 03:23 06/30/19 06/30/19 06/30/19 20:07 20:07 20:07 WBC 11.7 H RBC 4.64 Hgb 15.0 Hct 43.9 MCV 95 MCH 32.4 MCHC 34.2 RDW 12.4 Plt Count 383 Seg Neutrophils % Not Reportable Lymphocytes % Not Reportable Monocytes % Not Reportable Eosinophils % Not Reportable Basophils % Not Reportable Absolute Neutrophils Not Reportable Absolute Lymphocytes Not Reportable Absolute Monocytes Not Reportable Absolute Eosinophils Not Reportable Absolute Basophils Not Reportable Carbonic Acid HCO3/H2CO3 Ratio ABG pH ABG pCO2 ABG pO2 ABG HCO3 ABG O2 Saturation ABG Base Excess FiO2 Sodium 148.0 H Potassium 4.3 Chloride 114 H Carbon Dioxide 20 L Anion Gap 14 BUN 11 Creatinine 0.61 Est GFR ( Amer) > 60 Est GFR (Non-Af Amer) > 60 Glucose 128 H Lactic Acid 1.7 Calcium 8.2 L Phosphorus Magnesium Total Bilirubin 0.3 AST 32 Alkaline Phosphatase 77 Total Protein 7.4 Albumin 4.3 Urine Color Urine Appearance Urine pH Ur Specific [place] Urine Protein Urine Glucose (UA) Urine Ketones Urine Blood Urine Nitrite Ur Leukocyte Esterase Urine WBC (Auto) Urine RBC (Auto) 06/30/19 06/30/19 06/30/19 20:07 20:27 21:24 WBC RBC Hgb Hct MCV MCH MCHC RDW Plt Count Seg Neutrophils % Lymphocytes % Monocytes % Eosinophils % Basophils % Absolute Neutrophils Absolute Lymphocytes Absolute Monocytes Absolute Eosinophils Absolute Basophils Carbonic Acid 1.15 HCO3/H2CO3 Ratio 16:1 ABG pH 7.32 L ABG pCO2 38.3 ABG pO2 173.4 H ABG HCO3 19.1 L ABG O2 Saturation 99.1 H ABG Base Excess -6.5 FiO2 75% Sodium Potassium Chloride Carbon Dioxide Anion Gap BUN Creatinine Est GFR ( Amer) Est GFR (Non-Af Amer) Glucose Lactic Acid Calcium Phosphorus 5.0 H Magnesium 2.2 Total Bilirubin AST Alkaline Phosphatase Total Protein Albumin Urine Color STRAW Urine Appearance CLEAR Urine pH 5.0 Ur Specific [place] 1.005 Urine Protein NEGATIVE Urine Glucose (UA) NEGATIVE Urine Ketones NEGATIVE Urine Blood NEGATIVE Urine Nitrite NEGATIVE Ur Leukocyte Esterase NEGATIVE Urine WBC (Auto) 0 Urine RBC (Auto) 0 07/01/19 07/01/19 07/01/19 03:23 03:23 04:21 WBC 19.6 H RBC 4.55 Hgb 14.6 Hct 43.0 MCV 95 MCH 32.2 MCHC 34.0 RDW 12.4 Plt Count 329 Seg Neutrophils % 80.7 H Lymphocytes % 15.1 Monocytes % 3.9 Eosinophils % 0.1 Basophils % 0.2 Absolute Neutrophils 15.8 H Absolute Lymphocytes 2.9 Absolute Monocytes 0.8 Absolute Eosinophils 0.0 Absolute Basophils 0.0 Carbonic Acid 0.96 L HCO3/H2CO3 Ratio 17:1 ABG pH 7.35 ABG pCO2 31.8 L ABG pO2 102.8 H ABG HCO3 17.0 L ABG O2 Saturation 97.5 ABG Base Excess -7.4 FiO2 30% Sodium 149.6 H Potassium 4.0 Chloride 117 H Carbon Dioxide 20 L Anion Gap 13 BUN 10 Creatinine 0.64 Est GFR ( Amer) > 60 Est GFR (Non-Af Amer) > 60 Glucose 97 Lactic Acid Calcium 7.2 L Phosphorus Magnesium Total Bilirubin 0.5 AST 59 Alkaline Phosphatase 67 Total Protein 6.3 Albumin 3.5 Urine Color Urine Appearance Urine pH Ur Specific [place] Urine Protein Urine Glucose (UA) Urine Ketones Urine Blood Urine Nitrite Ur Leukocyte Esterase Urine WBC (Auto) Urine RBC (Auto) 06/30/19 20:07 Troponin I < 0.012 Impressions: Head CT 06/30/19 20:18 IMPRESSION: No acute intracranial abnormality. TECHNICAL DOCUMENTATION: Quality ID # [id number]: Final reports with documentation of one or more dose reduction techniques (e.g., Automated exposure control, adjustment of the mA and/or kV according to patient size, use of iterative reconstruction technique) copyright 2011 [email or web address]- All Rights Reserved Chest X-Ray 07/01/19 06:00 IMPRESSION: Compatible with aspiration complex. Dense opacity at the left base. SUPPORT DEVICE(S) IN EXPECTED LOCATIONS. Assessment & Plan - Diagnosis (1) Acute respiratory failure Qualifiers: Respiratory failure complication: hypoxia Qualified Code(s): J96.01 - Acute respiratory failure with hypoxia Is this a current diagnosis for this admission?: Yes Plan: Aspiratory rate, FiO2, airway pressures, minute ventilation suggest successful extubation will proceed with extubation (2) Alcohol intoxication Qualifiers: Complication of substance-induced condition: with unspecified complication Qualified Code(s): F10.929 - Alcohol use, unspecified with intoxication, unspecified Is this a current diagnosis for this admission?: Yes Plan: No evidence at this time of delirium tremors or alcohol withdrawal (3) Aspiration into respiratory tract Qualifiers: Encounter type: subsequent encounter Qualified Code(s): T17.908D - Unspecified foreign body in respiratory tract, part unspecified causing other injury, subsequent encounter Is this a current diagnosis for this admission?: Yes Plan: FiO2 21% - Time Total Critical Time (Minutes): 50
--- NOTE | 2019-07-05 13:09 | PDOC PROGRESS REPORT ---
Subjective Progress Note for:: 07/02/19 Subjective:: Intubated sedated Reason For Visit: ACUTE RESPIRATORY FAILURE ON MECHANICAL Physical Exam Vital Signs: Temp Pulse Resp BP Pulse Ox 99.9 F 74 20 123/90 H 96 07/02/19 08:00 07/02/19 08:38 07/02/19 08:38 07/02/19 08:00 07/02/19 08:38 Intake & Output 07/01/19 07/02/19 07/03/19 06:59 06:59 06:59 Intake Total 2947.2 5737 Output Total 2530 2210 400 Balance 417.2 3527 -400 Weight 51.9 kg 57 kg General appearance: PRESENT: no acute distress, disheveled, well-developed, well-nourished. ABSENT: cooperative Head exam: PRESENT: atraumatic, normocephalic Eye exam: PRESENT: conjunctiva pale. ABSENT: nystagmus, periorbital swelling Mouth exam: PRESENT: dry mucosa, neck supple, tongue midline, other - ET tube Neck exam: ABSENT: carotid bruit, full ROM, JVD, lymphadenopathy, meningismus, tenderness, thyromegaly, tracheal deviation, tracheostomy, other Respiratory exam: PRESENT: decreased breath sounds, rales, rhonchi, unlabored. ABSENT: retraction, stridor, tachypnea Cardiovascular exam: PRESENT: RRR, +S1, +S2, tachycardia Pulses: PRESENT: normal radial pulses GI/Abdominal exam: PRESENT: soft Gentrourinary exam: PRESENT: indwelling catheter Extremities exam: ABSENT: calf tenderness, clubbing, joint swelling, pedal edema Musculoskeletal exam: ABSENT: ambulatory, deformity, dislocation Neurological exam: ABSENT: awake Skin exam: PRESENT: dry, warm Results Laboratory Results: 07/02/19 03:17 07/02/19 03:17 07/02/19 07/02/19 07/02/19 03:17 03:17 04:55 WBC 15.8 H RBC 3.84 L Hgb 12.5 L D Hct 35.6 L MCV 93 MCH 32.6 MCHC 35.1 RDW 12.2 Plt Count 289 Seg Neutrophils % 87.6 H Lymphocytes % 7.0 L Monocytes % 4.8 Eosinophils % 0.2 Basophils % 0.4 Absolute Neutrophils 13.9 H Absolute Lymphocytes 1.1 Absolute Monocytes 0.8 Absolute Eosinophils 0.0 Absolute Basophils 0.1 Carbonic Acid 1.01 L HCO3/H2CO3 Ratio 19:1 ABG pH 7.39 ABG pCO2 33.5 L ABG pO2 76.3 L ABG HCO3 20.0 ABG O2 Saturation 95.4 ABG Base Excess -4.0 FiO2 25% Sodium 135.5 L Potassium 4.5 Chloride 107 Carbon Dioxide 20 L Anion Gap 9 BUN 6 L Creatinine 0.58 Est GFR ( Amer) > 60 Est GFR (Non-Af Amer) > 60 Glucose 143 H Calcium 7.1 L Phosphorus 2.6 Magnesium 1.9 Total Bilirubin 1.2 AST 26 Alkaline Phosphatase 69 Total Protein 5.5 L Albumin 2.9 L 06/30/19 20:07 Troponin I < 0.012 Impressions: Head CT 06/30/19 20:18 IMPRESSION: No acute intracranial abnormality. TECHNICAL DOCUMENTATION: Quality ID # 436: Final reports with documentation of one or more dose reduction techniques (e.g., Automated exposure control, adjustment of the mA and/or kV according to patient size, use of iterative reconstruction technique) copyright 2011 [employer]- All Rights Reserved Assessment & Plan - Diagnosis (1) Acute respiratory failure Qualifiers: Respiratory failure complication: hypoxia Qualified Code(s): J96.01 - Acute respiratory failure with hypoxia Is this a current diagnosis for this admission?: Yes Plan: Mechanical ventilation rule out delirium tremors seizures awaiting improvement in mental status (2) Alcohol intoxication Qualifiers: Complication of substance-induced condition: with unspecified complication Qualified Code(s): F10.929 - Alcohol use, unspecified with intoxication, unspecified Is this a current diagnosis for this admission?: Yes Plan: No evidence at this time of delirium tremors or alcohol withdrawal (3) Aspiration into respiratory tract Qualifiers: Encounter type: subsequent encounter Qualified Code(s): T17.908D - Unspecified foreign body in respiratory tract, part unspecified causing other injury, subsequent encounter Is this a current diagnosis for this admission?: Yes Plan: FiO2 21% - Time Total Critical Time (Minutes): 40
--- NOTE | 2019-07-05 13:11 | PDOC PROGRESS REPORT ---
Subjective Progress Note for:: 07/03/19 Subjective:: Intubated sedated Reason For Visit: ACUTE RESPIRATORY FAILURE ON MECHANICAL Physical Exam Vital Signs: Temp Pulse Resp BP Pulse Ox 98.4 F 56 L 16 140/96 H 99 07/03/19 08:00 07/03/19 08:00 07/03/19 08:00 07/03/19 08:00 07/03/19 08:00 Intake & Output 07/02/19 07/03/19 07/04/19 06:59 06:59 06:59 Intake Total 5987 3911 70 Output Total 2670 5295 35 Balance 8832 -8905 35 Weight 57 kg 55.3 kg General appearance: PRESENT: no acute distress, disheveled, well-developed, well-nourished Head exam: PRESENT: atraumatic, normocephalic Eye exam: PRESENT: conjunctiva pale. ABSENT: nystagmus, periorbital swelling Mouth exam: PRESENT: dry mucosa, neck supple, tongue midline, other - ET tube Neck exam: ABSENT: carotid bruit, full ROM, JVD, lymphadenopathy, meningismus, tenderness, thyromegaly, tracheal deviation, tracheostomy, other Respiratory exam: PRESENT: decreased breath sounds, rales, rhonchi, unlabored. ABSENT: retraction, stridor, tachypnea Cardiovascular exam: PRESENT: RRR, +S1, +S2 Pulses: PRESENT: normal radial pulses GI/Abdominal exam: PRESENT: diminished bowel sounds, soft Gentrourinary exam: PRESENT: indwelling catheter Extremities exam: ABSENT: calf tenderness, clubbing, joint swelling, pedal edema, tenderness Musculoskeletal exam: ABSENT: ambulatory, deformity, dislocation Neurological exam: ABSENT: awake Skin exam: PRESENT: dry, warm Results Laboratory Results: 07/03/19 03:45 07/03/19 03:45 07/03/19 07/03/19 07/03/19 03:45 03:45 03:45 WBC 12.6 H RBC 3.93 L Hgb 12.6 L Hct 35.9 L MCV 91 MCH 32.1 MCHC 35.2 RDW 12.1 Plt Count 262 Seg Neutrophils % 84.3 H Lymphocytes % 10.1 L Monocytes % 3.3 Eosinophils % 1.7 Basophils % 0.6 Absolute Neutrophils 10.7 H Absolute Lymphocytes 1.3 Absolute Monocytes 0.4 Absolute Eosinophils 0.2 Absolute Basophils 0.1 Carbonic Acid 0.81 L HCO3/H2CO3 Ratio 27:1 ABG pH 7.54 H ABG pCO2 26.8 L ABG pO2 102.6 H ABG HCO3 22.2 ABG O2 Saturation 98.3 H ABG Base Excess 0.8 FiO2 25% Sodium 135.0 L Potassium 3.8 Chloride 106 Carbon Dioxide 22 Anion Gap 7 BUN 4 L Creatinine 0.54 Est GFR ( Amer) > 60 Est GFR (Non-Af Amer) > 60 Glucose 115 H Calcium 8.3 L Phosphorus 1.2 L Magnesium 2.3 Total Bilirubin 1.0 AST 22 Alkaline Phosphatase 85 Total Protein 5.6 L Albumin 2.9 L 06/30/19 20:07 Troponin I < 0.012 Impressions: Head CT 06/30/19 20:18 IMPRESSION: No acute intracranial abnormality. TECHNICAL DOCUMENTATION: Quality ID # 436: Final reports with documentation of one or more dose reduction techniques (e.g., Automated exposure control, adjustment of the mA and/or kV according to patient size, use of iterative reconstruction technique) copyright 2011 [employer]- All Rights Reserved Chest X-Ray 07/03/19 06:00 IMPRESSION: 1. Slight increase in the perihilar airspace disease. 2. Endotracheal tube remains in satisfactory position. 3. NG tube has been withdrawn and lies in the mid esophagus. This needs to be advanced. Assessment & Plan - Diagnosis (1) Acute respiratory failure Qualifiers: Respiratory failure complication: hypoxia Qualified Code(s): J96.01 - Acute respiratory failure with hypoxia Is this a current diagnosis for this admission?: Yes Plan: Mechanical ventilation rule out delirium tremors seizures awaiting improvement in mental status (2) Alcohol intoxication Qualifiers: Complication of substance-induced condition: with unspecified complication Qualified Code(s): F10.929 - Alcohol use, unspecified with intoxication, unspecified Is this a current diagnosis for this admission?: Yes Plan: Continue supportive care (3) Aspiration into respiratory tract Qualifiers: Encounter type: subsequent encounter Qualified Code(s): T17.908D - Unspecified foreign body in respiratory tract, part unspecified causing other injury, subsequent encounter Is this a current diagnosis for this admission?: Yes Plan: Continue current antibiotic regimen - Time Total Critical Time (Minutes): 40
[2019-07-05] MEDS ORDERED: METOPROLOL TARTRATE PF/INJ 5 MG/5 ML SDV IV ONE ×2 (14:15)
[2019-07-05 15:15] LABS: ANION GAP 16 (5-19); BLOOD UREA NITROGEN 4 mg/dL (7-20); CALCIUM 8.8 mg/dL (8.4-10.2); CARBON DIOXIDE 16 mmol/L (22-30); CHLORIDE 107 mmol/L (98-107); GLUCOSE 92 mg/dL (75-110)
[2019-07-05 15:19] LABS: POTASSIUM 4.6 mmol/L (3.6-5.0)
[2019-07-05] MEDS: NORMAL SALINE 1000 ML 1,000 ML with POTASSIUM CHLORIDE 20 MEQ, MAGNESIUM SULFATE 8 MEQ,... IV SCH ×5 (17:59)
[2019-07-06 06:00] LABS: ANION GAP 12 (5-19); BLOOD UREA NITROGEN 6 mg/dL (7-20); CALCIUM 9.5 mg/dL (8.4-10.2); CARBON DIOXIDE 19 mmol/L (22-30); CHLORIDE 110 mmol/L (98-107); GLUCOSE 142 mg/dL (75-110); POTASSIUM 4.3 mmol/L (3.6-5.0)
[2019-07-06] MEDS: IPRATROPIUM/ALBUTEROL 0.5-2.5 MG/3 ML AMPUL NEB SCH ×4 (08:36→20:01)
[2019-07-06] MEDS: ENOXAPARIN SODIUM INJ 40 MG/0.4 ML DISP.SYRIN SUBCUT SCH (11:00)
[2019-07-06] MEDS: POLYETHYLENE GLYCOL 3350 POWDER 17 GM/1 PACKET NG SCH (11:00)
[2019-07-06] MEDS: FAMOTIDINE INJ/PF 20 MG/2 ML SDV IV SCH ×2 (11:00→21:01)
[2019-07-06] MEDS: GUAIFENESIN/D-METHORPHAN (200-20 MG) SYRUP 10 ML PO SCH ×3 (15:39→23:35)
--- NOTE | 2019-07-06 16:17 | PDOC PROGRESS REPORT ---
Subjective Progress Note for:: 07/06/19 Subjective:: Sitting up in bed resting comfortably. Tachycardic on the monitor. He does not appear agitated. Reason For Visit: ACUTE RESPIRATORY FAILURE ON MECHANICAL Physical Exam Vital Signs: Temp Pulse Resp BP Pulse Ox 99.9 F 99 19 138/90 H 98 07/06/19 12:00 07/06/19 15:50 07/06/19 15:50 07/06/19 13:29 07/06/19 15:50 Intake & Output 07/05/19 07/06/19 07/07/19 06:59 06:59 06:59 Intake Total 3673 574 400 Output Total 5250 4663 1125 Balance -1577 -4089 -725 Weight 55.6 kg General appearance: PRESENT: no acute distress, cooperative - Through his brother interpreting, well-developed Head exam: PRESENT: atraumatic, normocephalic Eye exam: PRESENT: conjunctiva pale, scleral icterus Mouth exam: PRESENT: moist, tongue midline Respiratory exam: PRESENT: clear to auscultation henry, symmetrical, unlabored. ABSENT: rales, rhonchi, tachypnea, wheezes Cardiovascular exam: PRESENT: +S1, +S2, systolic murmur - 2/6, tachycardia GI/Abdominal exam: PRESENT: normal bowel sounds, soft. ABSENT: distended, tenderness Rectal exam: PRESENT: deferred Gentrourinary exam: ABSENT: indwelling catheter Extremities exam: ABSENT: joint swelling, pedal edema, tenderness Musculoskeletal exam: PRESENT: normal inspection. ABSENT: deformity, tenderness Neurological exam: PRESENT: alert, awake, other - The patient appeared to be oriented. Difficult to fully assess as his brother was interpreting. Psychiatric exam: PRESENT: flat affect. ABSENT: agitated, anxious Skin exam: PRESENT: dry, normal color, warm. ABSENT: rash Results Laboratory Results: 07/05/19 03:35 07/06/19 05:14 07/06/19 05:14 Sodium 140.7 Potassium 4.3 Chloride 110 H Carbon Dioxide 19 L Anion Gap 12 BUN 6 L Creatinine 0.71 Est GFR ( Amer) > 60 Glucose 142 H Calcium 9.5 Magnesium 2.4 H 06/30/19 22:27 Blood Blood Culture - Final NO GROWTH IN 5 DAYS 06/30/19 21:24 Blood Blood Culture - Final NO GROWTH IN 5 DAYS 06/30/19 20:07 Troponin I < 0.012 Impressions: Head CT 06/30/19 20:18 IMPRESSION: No acute intracranial abnormality. TECHNICAL DOCUMENTATION: Quality ID # 436: Final reports with documentation of one or more dose reduction techniques (e.g., Automated exposure control, adjustment of the mA and/or kV according to patient size, use of iterative reconstruction technique) copyright 2010 [employer]- All Rights Reserved Chest X-Ray 07/05/19 08:20 IMPRESSION: Stable radiographic appearance of the chest without improvement. SUPPORT DEVICE(S) IN EXPECTED LOCATIONS. KUB X-Ray 07/05/19 08:20 IMPRESSION: NO RADIOGRAPHIC EVIDENCE FOR ACUTE ABDOMINAL DISEASE. Assessment and Plan - Diagnosis (1) Acute respiratory failure Qualifiers: Respiratory failure complication: hypoxia Qualified Code(s): J96.01 - Acute respiratory failure with hypoxia Is this a current diagnosis for this admission?: Yes Plan: 07/03/2019-the patient remains intubated. Current settings are SIMV with a rate of 12. Tidal volume is 500 with pressure support 10 and PEEP 5. FiO2 is 25%. His pH was 7.54 with a PCO2 that was low at 26.8. I am going to decrease the ti arlette volume to 450 and allow him to retain more PCO2 which will then bring the pH down. Repeat blood gases ordered for tomorrow. 07/04/2019-the patient remains intubated. Continue weaning trials. pH improved to 7.43 with reduction in tidal volume. Continue current respiratory treatments. We will try and aim for extubation tomorrow. 07/05/2019-the patient has been extubated this morning. He is currently on a face tent. He appears quite comfortable. He still is somnolent from medication. Will continue oxygen supplementation with an intent of weaning to room air as soon as possible. 07/06/2019-on room air. Respiratory failure resolved. (2) Alcohol intoxication Qualifiers: Complication of substance-induced condition: with unspecified complication Qualified Code(s): F10.929 - Alcohol use, unspecified with intoxication, unspecified Is this a current diagnosis for this admission?: Yes Plan: 07/03/2019-serum alcohol level on admission was 753. He has been getting fluids and has had a net positive fluid balance. Serum alcohol level should dissipate. We will need to monitor for withdrawal and delirium tremens. PRN medications available. We will continue the banana bag IV and monitor serum chemistries. 07/04/2019-the patient is still in the window for withdrawal. Prior to extubation we will make scheduled and as needed medications available as there w ill likely be significant withdrawal symptoms. 07/05/2019-once the current sedation wears off we will need to assess the potential for withdrawal. As needed medications will be available. I do not be lieve he will need scheduled medications at this time but this will be based on daily assessments. 07/06/2019-resting comfortably. I have strongly encouraged the patient's brother to support and organized support program such as Alcoholics Anonymous. The patient is going to return to [place]. Hopefully he will take advantage of resources available when he is home. (3) Aspiration into respiratory tract Qualifiers: Encounter type: subsequent encounter Qualified Code(s): T17.908D - Unspecified foreign body in respiratory tract, part unspecified causing other injury, subsequent encounter Is this a current diagnosis for this admission?: Yes Plan: 07/03/2019-patient exhibits airspace disease bilaterally. We will continue vancomycin and Zosyn at this time. Repeat chest x-ray in the morning. Continue weaning attempts. 07/04/2019-continue vancomycin and Zosyn. Did review the chest x-ray. The patient has been receiving IV fluids and he is net positive. As some of the infiltrates could be from fluid I have decreased the IV fluid to 50 mL's an hour and will administer a trial dose of 20 mg furosemide IV and monitor output. 07/05/2019-we will complete the current antibiotic regimen as ordered. 07/06/2019-complete antibiotic therapy. (4) Constipation Is this a current diagnosis for this admission?: Yes Plan: 07/03/2019-KUB film today revealed large fecal load. I have ordered a Dulcolax suppository as well as MiraLAX daily. If there is no bowel movement by tomorrow then we will likely administer a fleets enema. 07/04/2019-multiple medications have been administered. There is been no resp onse thus far. We may need to institute soapsuds enemas. 07/05/2019-the patient has received an aggressive regimen of stool softeners and laxatives. It is my hope that once he begins to eat and drink this will also stimulate his bowels. Physical therapy will be seeing the patient and increased activity should also help. 07/06/2019-continue aggressive therapy. If he does not have bowel movement c onsider citrate of magnesium or lactulose. (5) Maggot infestation Is this a current diagnosis for this admission?: Yes Plan: 07/03/2019-appreciate Dr. Dsouza's input. Per his evaluation there is no necrotic tissue. The infestation was likely due to a large volume of house flies that had access to the patient while he was unconscious. We will continue to monitor and suction any maggots observed in the nasal cavities. 07/04/2019-continue to monitor for reappearance of maggots. 07/05/2019-no recurrence of maggots have been reported. 07/06/2019-resolved (6) Hypokalemia Is this a current diagnosis for this admission?: Yes Plan: 07/05/2019-serum potassium was low today. The patient received potassium chloride supplement. Repeat potassium is normal. We will recheck electrolytes tomorrow. 07/06/2019-serum potassium is normal. Continue to monitor. With resumption of normal diet his electrolytes should stabilize. - Time Time Spent with patient: 15-24 minutes Medications reviewed and adjusted accordingly: Yes Anticipated discharge: Home
[2019-07-06] MEDS: NORMAL SALINE 1000 ML 1,000 ML with POTASSIUM CHLORIDE 20 MEQ, MAGNESIUM SULFATE 8 MEQ,... IV SCH ×5 (18:17)
[2019-07-06] MEDS: METOPROLOL SUCCINATE 25 MG TAB.SR.24H PO SCH (18:24)
[2019-07-07 04:48] LABS: HEMOGLOBIN 11.4 g/dL (13.5-17.0); MEAN CORPUSCULAR HEMOGLOBIN 32.4 pg (27.0-33.4); MEAN CORPUSCULAR HGB CONC 34.5 g/dL (32.0-36.0); MEAN CORPUSCULAR VOLUME 94 fl (80-97); PLATELET COUNT 472 10^3/uL (150-450); RED BLOOD COUNT 3.52 10^6/uL (4.35-5.55); RED CELL DISTRIBUTION WIDTH 12.3 % (11.5-14.0); WHITE BLOOD COUNT 8.9 10^3/uL (4.0-10.5)
[2019-07-07 05:07] LABS: ALBUMIN 3.2 g/dL (3.5-5.0); ALKALINE PHOSPHATASE 163 U/L (38-126); ANION GAP 9 (5-19); ASPARTATE AMINO TRANSFERASE 36 U/L (17-59); BILIRUBIN,DIRECT 0.2 mg/dL (0.0-0.4); BILIRUBIN,TOTAL 0.3 mg/dL (0.2-1.3); BLOOD UREA NITROGEN 7 mg/dL (7-20); CALCIUM 8.8 mg/dL (8.4-10.2); CARBON DIOXIDE 21 mmol/L (22-30); CHLORIDE 111 mmol/L (98-107); GLUCOSE 112 mg/dL (75-110); POTASSIUM 3.9 mmol/L (3.6-5.0); TOTAL PROTEIN 5.9 g/dL (6.3-8.2)
[2019-07-07] MEDS: GUAIFENESIN/D-METHORPHAN (200-20 MG) SYRUP 10 ML PO SCH ×2 (06:14→11:23)
[2019-07-07] MEDS: NORMAL SALINE 1000 ML 1,000 ML IV PRN (06:20)
[2019-07-07] MEDS: IPRATROPIUM/ALBUTEROL 0.5-2.5 MG/3 ML AMPUL NEB SCH ×2 (08:07→11:29)
[2019-07-07] MEDS: POLYETHYLENE GLYCOL 3350 POWDER 17 GM/1 PACKET NG SCH (09:29)
[2019-07-07] MEDS: FAMOTIDINE INJ/PF 20 MG/2 ML SDV IV SCH (09:29)
[2019-07-07] MEDS: METOPROLOL SUCCINATE 25 MG TAB.SR.24H PO SCH (09:29)
[2019-07-07] MEDS: ENOXAPARIN SODIUM INJ 40 MG/0.4 ML DISP.SYRIN SUBCUT SCH (09:30)
[2019-07-07] MEDS ORDERED: METOPROLOL SUCCINATE 25 MG TAB.SR.24H PO SCH (10:00)
--- NOTE | 2019-07-07 11:28 | PDOC DISCHARGE SUMMARY ---
General - Admit/Disc Date/PCP Admission Date/Primary Care Provider: 06/30/19 23:38 Discharge Date: 07/07/19 - Discharge Diagnosis (1) Acute respiratory failure Is this a current diagnosis for this admission?: Yes Summary: 07/03/2019-the patient remains intubated. Current settings are SIMV with a rate of 12. Tidal volume is 500 with pressure support 10 and PEEP 5. FiO2 is 25%. His pH was 7.54 with a PCO2 that was low at 26.8. I am going to decrease the tidal volume to 450 and allow him to retain more PCO2 which will then bring the pH down. Repeat blood gases ordered for tomorrow. 07/04/2019-the patient remains intubated. Continue weaning trials. pH improved to 7.43 with reduction in tidal volume. Continue current respiratory treatments. We will try and aim for extubation tomorrow. 07/05/2019-the patient has been extubated this morning. He is currently on a face tent. He appears quite comfortable. He still is somnolent from medication. Will continue oxygen supplementation with an intent of weaning to room air as soon as possible. 07/06/2019-on room air. Respiratory failure resolved. 07/07/2019-patient was admitted to ICU and intubated and extubated for acute respiratory failure with hypoxia. Patient doing well today. Comfortably sitting the chair communicating well in [place]ian. Socks is a 96% on room air today. (2) Alcohol intoxication Is this a current diagnosis for this admission?: Yes Summary: 07/03/2019-serum alcohol level on admission was 753. He has been getting fluids and has had a net positive fluid balance. Serum alcohol level should dissipate. We will need to monitor for withdrawal and delirium tremens. PRN medications available. We will continue the banana bag IV and monitor serum chemistries. 07/04/2019-the patient is still in the window for withdrawal. Prior to extubation we will make scheduled and as needed medications available as there will likely be significant withdrawal symptoms. 07/05/2019-once the current sedation wears off we will need to assess the potential for withdrawal. As needed medications will be available. I do not believe he will need scheduled medications at this time but this will be based on daily assessments. 07/06/2019-resting comfortably. I have strongly encouraged the patient's brother to support and organized support program such as Alcoholics Anonymous. The patient is going to return to [facility]. Hopefully he will take advantage of resources available when he is home. 07/07/2019-comfortably in the chair communicating well. No tremors no anxiety noticed. Patient was referred to alcohol Anonymous. Strongly advised him to quit drinking. (3) Aspiration into respiratory tract Is this a current diagnosis for this admission?: Yes Summary: 07/03/2019-patient exhibits airspace disease bilaterally. We will continue vancomycin and Zosyn at this time. Repeat chest x-ray in the morning. Continue weaning attempts. 07/04/2019-continue vancomycin and Zosyn. Did review the chest x-ray. The patient has been receiving IV fluids and he is net positive. As some of the infiltrates could be from fluid I have decreased the IV fluid to 50 mL's an hour and will administer a trial dose of 20 mg furosemide IV and monitor output. 07/05/2019-we will complete the current antibiotic regimen as ordered. 07/06/2019-complete antibiotic therapy. 07/07/2019-patient was treated for aspiration pneumonia cultures are negative. Presently not on antibiotics. Pulse ox is 94 to 96% on room air. is going to be discharged today. (4) Constipation Is this a current diagnosis for this admission?: Yes (5) Maggot infestation Is this a current diagnosis for this admission?: Yes Summary: 07/03/2019-appreciate Dr. Dsouza's input. Per his evaluation there is no necrotic tissue. The infestation was likely due to a large volume of house flies that had access to the patient while he was unconscious. We will continue to monitor and suction any maggots observed in the nasal cavities. 07/04/2019-continue to monitor for reappearance of maggots. 07/05/2019-no recurrence of maggots have been reported. 07/06/2019-resolved (6) Hypokalemia Is this a current diagnosis for this admission?: Yes Summary: 07/05/2019-serum potassium was low today. The patient received potassium chloride supplement. Repeat potassium is normal. We will recheck electrolytes tomorrow. 07/06/2019-serum potassium is normal. Continue to monitor. With resumption of normal diet his electrolytes should stabilize. - Additional Information Resuscitation Status: Full Code Discharge Diet: As Tolerated Discharge Activity: Activity As Tolerated Home Medications: No Home Medications 06/30/19 History of Present Illness History of Present Illness: AALIYAH LION is a 34 year old male 34 year old male with history of EtOH abuse who presented to the emergency room after drinking about the fifth of tequila and half an hour. Patient is known to drink heavily over the weekend. He vomited and was later noted to be in agonal breathing by EMS covered with vomitus. No other history could be obtained and there were no family members available. Upon presentation to the emergency room vital signs were normal as mentioned below. Labs revealed leukocytosis of 11.7With 50% lymphocytes and 36% neutrophils with 50% with 50% of sites and 36% neutrophils. ABG showed pH 7.32, bicarbonate 19.1, PCO2 173.4 and PCO2 38.3. CMP was remarkable for hyponatremia 148 and hyperchloremia 114. CO2 is 20 glucose 128 with calcium 8.2, phosphorus 5, magnesium 2.2 lactic acid 1.7 His alcohol level remarkably elevated at 753, Tylenol and salicylate less than 10 and urine drug screen came back negative. Head CT scan revealed no acute intracranial abnormalities and EKG revealed sinus tachycardia with a rate of 113. The patient was given IV Narcan in the emergency room as well as hydration with IV normal saline and then banana bag. The patient will be admitted to an ICU bed for further evaluation and management Hospital Course Hospital Course: 34 year old male with history of EtOH abuse who presented to the emergency room after drinking about the fifth of tequila and half an hour. [place] damon is known to drink heavily over the weekend. He vomited and was later noted to be in agonal breathing by EMS covered with vomitus. No other history could be obtained and there were no family members available. Upon presentation to the emergency room vital signs were normal as mentioned bel ow. Labs revealed leukocytosis of 11.7With 50% lymphocytes and 36% neutrophils with 50% with 50% of sites and 36% neutrophils. ABG showed pH 7.32, bicarbonate 19.1, PCO2 173.4 and PCO2 38.3. CMP was remarkable for hyponatremia 148 and hyperchloremia 114. CO2 is 20 glucose 128 with calcium 8.2, phosphorus 5, magnesium 2.2 lactic acid 1.7 His alcohol level remarkably elevated at 753, Tylenol and salicylate less than 10 and urine drug screen came back negative. Head CT scan revealed no acute intracranial abnormalities and EKG revealed sinus tachycardia with a rate of 113. The patient was given IV Narcan in the emergency room as well as hydration with IV normal saline and then banana bag. The patient will be admitted to an ICU bed for further evaluation and management [id number]-old male admitted for alcohol intoxication acute respiratory failure with hypoxia. Hypoxia is resolved. Pulse ox is 94% on room air. Comfortable in the chair communicating well. Plan is to discharge him home today. Patient was initially in the intensive care for acute respiratory failure and alcohol intoxication transferred to the medical floor he is doing extremely well. Physical Exam Vital Signs: Temp Pulse Resp BP Pulse Ox 98.5 F 77 16 141/87 H 98 07/07/19 03:26 07/07/19 08:07 07/07/19 08:07 07/07/19 03:26 07/07/19 08:07 Intake & Output 07/06/19 07/07/19 07/08/19 06:59 06:59 06:59 Intake Total 2597 1417 6 Output Total 4663 2025 Balance -2066 -608 6 Weight 54.8 kg General appearance: PRESENT: no acute distress, thin Head exam: PRESENT: atraumatic Eye exam: PRESENT: PERRLA Mouth exam: PRESENT: moist, tongue midline Neck exam: ABSENT: carotid bruit, JVD, lymphadenopathy, thyromegaly Respiratory exam: PRESENT: decreased breath sounds Cardiovascular exam: PRESENT: RRR. ABSENT: diastolic murmur, rubs, systolic murmur GI/Abdominal exam: PRESENT: normal bowel sounds, soft. ABSENT: distended, guarding, mass, organolmegaly, rebound, tenderness Rectal exam: PRESENT: deferred Extremities exam: PRESENT: full ROM. ABSENT: calf tenderness, clubbing, pedal edema Neurological exam: PRESENT: alert, awake, oriented to person, oriented to place, oriented to time, oriented to situation, CN II-XII grossly intact. ABSENT: motor sensory deficit Psychiatric exam: PRESENT: appropriate affect, normal mood. ABSENT: homicidal ideation, suicidal ideation Results Laboratory Results: 07/07/19 04:27 07/07/19 04:27 07/07/19 07/07/19 04:27 04:27 WBC 8.9 RBC 3.52 L Hgb 11.4 L Hct 33.0 L MCV 94 MCH 32.4 MCHC 34.5 RDW 12.3 Plt Count 472 H Sodium 140.7 Potassium 3.9 Chloride 111 H Carbon Dioxide 21 L Anion Gap 9 BUN 7 Creatinine 0.64 Est GFR ( Amer) > 60 Glucose 112 H Calcium 8.8 Magnesium 2.1 Total Bilirubin 0.3 AST 36 Alkaline Phosphatase 163 H Total Protein 5.9 L Albumin 3.2 L 06/30/19 20:07 Troponin I < 0.012 Impressions: Head CT 06/30/19 20:18 IMPRESSION: No acute intracranial abnormality. TECHNICAL DOCUMENTATION: Quality ID # [id number]: Final reports with documentation of one or more dose reduction techniques (e.g., Automated exposure control, adjustment of the mA and/or kV according to patient size, use of iterative reconstruction technique) copyright 2011 [employer]- All Rights Reserved Chest X-Ray 07/05/19 08:20 IMPRESSION: Stable radiographic appearance of the chest without improvement. SUPPORT DEVICE(S) IN EXPECTED LOCATIONS. KUB X-Ray 07/05/19 08:20 IMPRESSION: NO RADIOGRAPHIC EVIDENCE FOR ACUTE ABDOMINAL DISEASE. Qualifiers - * PATIENT BEING DISCHARGED WITH ANY OF THE FOLLOWING DIAGNOSIS: No VTE patient discharged on overlapping Therapy?: No Acute Heart Failure - Is this a Heart Failure Patient?: No
[2019-07-07 12:41] VITALS: BP 145/87
== END 2019-07-07 13:00 | disposition home or self-care (01) | DRG 207 ==
LOC: ER 20:03 → EH 23:38 → ICU 07-01 02:30 → 5 07-06 19:59
PROVIDERS: ADMIT Family Medicine; ATTEND Family Medicine
PROC: 5A1955Z Respiratory Ventilation, Greater than 96 Consecutive Hours (ICD-10-PCS; principal; 2019-06-30)
PROC: 0BH17EZ Insertion of Endotracheal Airway into Trachea, Via Natural or Artificial Opening (ICD-10-PCS; 2019-06-30)
DX: J96.01 Acute respiratory failure with hypoxia (principal); J69.0 Pneumonitis due to inhalation of food and vomit; E87.1 Hypo-osmolality and hyponatremia; F10.129 Alcohol abuse with intoxication, unspecified; B87.89 Myiasis of other sites; E87.6 Hypokalemia; Y90.8 Blood alcohol level of 240 mg/100 ml or more; K59.00 Constipation, unspecified; R00.0 Tachycardia, unspecified; I10 Essential (primary) hypertension; Z71.41 Alcohol abuse counseling and surveillance of alcoholic
CPT/HCPCS: 36415; 51702; 70450; 71045; 74018; 80048; 80053; 80076; 80202; 80307; 81001; 82803; 82962; 83605; 83735; 84100; 84484; 85025; 85027; 87040; 87070; 87205; 90471; 93005; 93010; 94002; 94003; 94640; 96361; 96365; 96367; 96368; 96375; 99285; J0743; J1100; J1650; J1940; J2060; J2250; J2270; J2310; J2405; J2543; J3010; J3360; J3370; J3411; J3475; J3480; J3490; J7030; J7040; J7050; J7060; J7120; J7620; S0028